=== PATIENT | male | born 1955 | race Caucasian/White ===

== ENCOUNTER 2018-07-21 10:47 | Emergency (ER) | payer OTHER ==
[2018-07-21] MEDS ORDERED: HYDROcodone/Acetaminophen 10/325 mg Tablet ONE (12:14)
[2018-07-21] MEDS ORDERED: Cyclobenzaprine 10 MG TAB ONE (12:14)
[2018-07-21] MEDS ORDERED: Morphine 4 MG/ML VIAL ONE (12:28)
== END 2018-07-21 13:16 | disposition home or self-care (01) ==
LOC: ERS 10:47
DX: M54.5 Low back pain (principal); F41.9 Anxiety disorder, unspecified; F32.9 Major depressive disorder, single episode, unspecified; F17.210 Nicotine dependence, cigarettes, uncomplicated; Z79.899 Other long term (current) drug therapy
CPT/HCPCS: 96372; J2270

== ENCOUNTER 2020-10-20 23:06 | Inpatient (IN) | payer OTHER ==
[2020-10-21 00:53] LABS: Mean Corpuscular HGB CONC 32.6 g/dL (32.0-36.0); Mean Corpuscular Hemoglobin 28.6 pg (27.0-31.0); Mean Corpuscular Volume 87.8 fL (78.0-98.0); Mean Platelet Volume 8.1 fL (7.4-10.4); Platelet Count 428 thou/uL (130-400); RBC Distribution Width 13.7 % (11.5-14.5); Red Blood Cell (RBC) Count 5.95 mill/uL (4.70-6.10); White Blood Cell (WBC) Count 24.9 thou/uL (4.8-10.8)
[2020-10-21 01:08] LABS: Band 16 % (5-11); Lymphocytes 19 % (21-51); MDiff Complete? YES; Monocytes 5 % (0-10); Neutrophil 60 % (42-75)
[2020-10-21 01:11] LABS: Acetaminophen Less than 6.0 mcg/mL (10.0-30.0); Alcohol Less than 10 mg/dL (Less than 10)
[2020-10-21 01:12] LABS: ALT (SGPT) 126 U/L (8-55); AST (SGOT) 576 U/L (5-34); Albumin 4.3 g/dL (3.4-4.8); Alkaline Phosphatase 107 U/L (40-110); Anion Gap 21 mmol/L (10-20); BUN (Urea Nitrogen) 23 mg/dL (8.4-25.7); Bilirubin, Total 0.5 mg/dL (0.2-1.2); Calc. Creatinine Clearance 0 mL/min (70-130); Calcium 9.5 mg/dL (7.8-10.44); Carbon Dioxide 22 mmol/L (23-31); Chloride 98 mmol/L (98-107); Globulin 4.6 g/dL (2.4-3.5); Glucose 162 mg/dL (80-115); Protein, Total 8.9 g/dL (5.8-8.1); Sodium 134 mmol/L (136-145)
[2020-10-21 01:21] LABS: Potassium 6.6 mmol/L (3.5-5.1)
[2020-10-21 01:31] LABS: Salicylate Less than 8.0 mg/dL (15.0-30.0)
[2020-10-21 01:51] LABS: CK (CPK) Greater than 40000 U/L (30-200)
[2020-10-21] MEDS ORDERED: Dextrose 50% Abboject 50 ML SYRINGE ONE (01:54)
[2020-10-21] MEDS ORDERED: Calcium Chloride 1 GM/10 ML Abboject SYRINGE ONE (01:54)
[2020-10-21] MEDS ORDERED: Vancomycin 1 GM/200 ML BAG ONE (03:01)
[2020-10-21] MEDS ORDERED: Cefepime 2 GM VIAL ONE (03:01)
[2020-10-21] MEDS ORDERED: Insulin Regular 300 UNITS/3 ML VIAL ONE (03:01)
[2020-10-21] MEDS ORDERED: Albuterol Sulfate 2.5 mg/3 ml Neb ONE (04:03)
[2020-10-21 04:13] LABS: Bacteria/HPF None Seen HPF (None Seen); Bilirubin Negative (Negative); Blood, Urine 3+ (Negative); Clarity Turbid (Clear); Glucose, Urine (Dipstick) 50 mg/dL (Negative); Ketone, Urine Negative (Negative); Leukocyte Negative Leu/uL (Negative); Nitrite Negative (Negative); Protein, Urine (Dipstick) 100 mg/dL (Neg-Trace); RBC/HPF 0-3 HPF (0-3); Specific Gravity, Urine 1.016 (1.002-1.036); Squamous Epithelial None Seen HPF (0-3); Urobilinogen Normal mg/dL (Less than 2); pH, Urine 5.5 (5.0-9.0)
[2020-10-21 04:21] LABS: Amphetamine Not Detected (NotDetected); Barbiturates Screen Not Detected (NotDetected); Benzodiazepine Screen Detected (NotDetected); Cocaine Metabolite Screen Detected (NotDetected); Methadone Not Detected (NotDetected); Methamphetamine Not Detected (NotDetected); Opiate Screen Not Detected (NotDetected); Oxycodone Screen Not Detected (NotDetected); Phencyclidine (PCP) Not Detected (NotDetected); THC/Cannabinoid Screen Not Detected (NotDetected); Tricyclic Screen Not Detected (NotDetected)
[2020-10-21] MEDS ORDERED: Ondansetron PF 4 MG/2 ML Vial IVP PRN (04:33)
[2020-10-21 05:13] LABS: CKMB 273.8 ng/mL (0-6.6)
[2020-10-21 05:17] LABS: INR-International Normal Ratio 1.2; PTT 28.9 sec (22.9-36.1); Prothrombin Time 14.8 sec (12.0-14.7)
[2020-10-21] MEDS: Sodium Bicarbonate 150 MEQ in Dextrose 5% in Water 1,000 ML IV SCH ×3 (05:24→21:49)
[2020-10-21 05:32] LABS: Lactic Acid 4.2 mmol/L (0.5-2.2)
[2020-10-21] MEDS ORDERED: Acetaminophen 325 MG TAB ONE (05:43)
[2020-10-21 05:54] LABS: CSF Source CSF; Clarity Clear (Clear); Tube # 4
[2020-10-21] MEDS: Acetaminophen 325 MG TAB PO PRN (05:57)
[2020-10-21 05:58] LABS: CSF Source CSF
[2020-10-21] MEDS: Sodium Chloride 0.9% 1,000 ML IV SCH ×2 (05:58→19:03)
[2020-10-21 05:59] LABS: Clarity Clear (Clear); Tube # 1
[2020-10-21 06:10] LABS: Cardiac Risk 5.2 (Less than 4.5)
[2020-10-21 06:15] LABS: CSF, Glucose 114 mg/dl (40-70); CSF, Protein 64 mg/dL (15-40)
[2020-10-21 06:16] LABS: Color Of CSF Supernatant COLORLESS (Colorless); Tube # 2; Unspun CSF Color COLORLESS (Colorless)
[2020-10-21 06:31] LABS: SARS-CoV-2 NAA Rapid Test Not Detected (NotDetected)
[2020-10-21 06:35] LABS: Hep C IgG Ab Reflex HepC Qnt (NonReactive); Hep C Index 13.26 S/CO (0-0.79)
[2020-10-21 07:16] LABS: ALT (SGPT) 120 U/L (8-55); AST (SGOT) 551 U/L (5-34); Albumin 3.2 g/dL (3.4-4.8); Alkaline Phosphatase 75 U/L (40-110); Anion Gap 11 mmol/L (10-20); BUN (Urea Nitrogen) 27 mg/dL (8.4-25.7); Bilirubin, Total 0.5 mg/dL (0.2-1.2); Calc. Creatinine Clearance 0 mL/min (70-130); Calcium 8.6 mg/dL (7.8-10.44); Carbon Dioxide 27 mmol/L (23-31); Chloride 102 mmol/L (98-107); Globulin 3.5 g/dL (2.4-3.5); Glucose 214 mg/dL (80-115); Potassium 4.6 mmol/L (3.5-5.1); Protein, Total 6.7 g/dL (5.8-8.1); Sodium 135 mmol/L (136-145)
[2020-10-21 07:42] LABS: CK (CPK) 35172 U/L (30-200)
[2020-10-21 08:30] LABS: Troponin I 0.342 ng/mL (< 0.028)
[2020-10-21] MEDS ORDERED: Cefepime 2 GM in Sodium Chloride 0.9% 100 ML IVPB SCH (09:00)
[2020-10-21] MEDS ORDERED: Enoxaparin Sodium 30 MG/0.3 ML SYRINGE SC SCH (09:00)
[2020-10-21] MEDS ORDERED: Morphine 4 MG/ML VIAL ONE (10:36)
[2020-10-21] MEDS ORDERED: Ondansetron PF 4 MG/2 ML Vial ONE (10:36)
[2020-10-21] MEDS ORDERED: PROPOFOL 200 MG/20 ML VIAL ONE (12:15)
[2020-10-21] MEDS ORDERED: Labetalol HCl 100 MG/20 ML VIAL ONE (13:45)
[2020-10-21] MEDS ORDERED: VANCOMYCIN 1.25 GM/250 ML BAG 1.25 GM in Premix Bag 1 BAG IVPB SCH (15:00)
[2020-10-21] MEDS ORDERED: Fentanyl 100 MCG/2 ML VIAL ONE (15:44)
[2020-10-21] MEDS: Lactated Ringer's 1,000 ML IV SCH ×2 (19:03→21:40)
[2020-10-21] MEDS: Cefepime 2 GM in Sodium Chloride 0.9% 100 ML IVPB SCH (19:03)
[2020-10-21] MEDS: Enoxaparin Sodium 40 MG/0.4 ML SYRINGE SC SCH (21:38)
[2020-10-21] MEDS: traMADol HCl 50 MG TAB PO PRN (21:38)
[2020-10-21] MEDS: Vancomycin 1 GM in Premix Bag 1 BAG IVPB SCH (23:02)
[2020-10-22] MEDS: Lactated Ringer's 1,000 ML IV SCH ×5 (04:26→23:26)
[2020-10-22] MEDS: Cefepime 2 GM in Sodium Chloride 0.9% 100 ML IVPB SCH ×2 (04:26→16:48)
[2020-10-22] MEDS: Morphine 4 MG/ML VIAL SLOW IVP PRN ×2 (04:26→17:33)
[2020-10-22] MEDS: Sodium Bicarbonate 150 MEQ in Dextrose 5% in Water 1,000 ML IV SCH (06:02)
[2020-10-22 06:57] LABS: ALT (SGPT) 104 U/L (8-55)
[2020-10-22 06:58] LABS: AST (SGOT) 527 U/L (5-34); Albumin 2.4 g/dL (3.4-4.8); Alkaline Phosphatase 51 U/L (40-110); Anion Gap 8 mmol/L (10-20); BUN (Urea Nitrogen) 34 mg/dL (8.4-25.7); Bilirubin, Total 0.4 mg/dL (0.2-1.2); Calc. Creatinine Clearance 37 mL/min (70-130); Calcium 6.9 mg/dL (7.8-10.44); Carbon Dioxide 31 mmol/L (23-31); Chloride 101 mmol/L (98-107); Globulin 2.9 g/dL (2.4-3.5); Glucose 126 mg/dL (80-115); Potassium 3.4 mmol/L (3.5-5.1); Protein, Total 5.3 g/dL (5.8-8.1); Sodium 137 mmol/L (136-145)
[2020-10-22 07:01] LABS: #Lymphocytes 2.4 thou/uL (1.20-3.40); #Neutrophils 11.1 thou/uL (1.40-6.50); %Basophils 0.2 % (0.0-1.0); %Eosinophils 0.1 % (0.0-10.0); %Lymphocytes 15.6 % (21.0-51.0); %Monocytes 12.9 % (0.0-10.0); %Neutrophils 71.1 % (42.0-75.0); Hemoglobin 11.1 g/dL (14.0-18.0); Mean Corpuscular HGB CONC 31.9 g/dL (32.0-36.0); Mean Corpuscular Hemoglobin 27.7 pg (27.0-31.0); Mean Corpuscular Volume 86.9 fL (78.0-98.0); Mean Platelet Volume 8.3 fL (7.4-10.4); Platelet Count 205 thou/uL (130-400); RBC Distribution Width 13.7 % (11.5-14.5); White Blood Cell (WBC) Count 15.6 thou/uL (4.8-10.8)
[2020-10-22] MEDS ORDERED: Lactated Ringer's 1,000 ML IV SCH (07:06)
[2020-10-22 07:12] LABS: CK (CPK) 24167 U/L (30-200)
[2020-10-22] MEDS: Polyethylene Glycol 3350 17 GM Packet PO SCH (08:54)
[2020-10-22 08:57] VITALS: BMI 24.4
[2020-10-22] MEDS ORDERED: Potassium Chloride 20 MEQ TAB PO SCH (09:30)
[2020-10-22] MEDS: Enoxaparin Sodium 40 MG/0.4 ML SYRINGE SC SCH (21:08)
[2020-10-22] MEDS: Vancomycin 1 GM in Premix Bag 1 BAG IVPB SCH (21:08)
[2020-10-22 23:45] LABS: Vancomycin, Trough 31.8 ug/mL
[2020-10-23] MEDS: Morphine 4 MG/ML VIAL SLOW IVP PRN ×5 (00:36→15:44)
[2020-10-23] MEDS: Acetaminophen 325 MG TAB PO PRN (00:58)
[2020-10-23] MEDS: Lactated Ringer's 1,000 ML IV SCH ×4 (04:00→20:49)
[2020-10-23] MEDS: Cefepime 2 GM in Sodium Chloride 0.9% 100 ML IVPB SCH ×2 (04:00→15:16)
[2020-10-23 05:47] LABS: #Eosinphils 0.1 thou/uL (0.0-0.7); #Lymphocytes 2.5 thou/uL (1.20-3.40); #Monocytes 1.4 thou/uL (0.11-0.59); %Basophils 0.1 % (0.0-1.0); %Eosinophils 0.6 % (0.0-10.0); %Lymphocytes 19.1 % (21.0-51.0); %Neutrophils 69.2 % (42.0-75.0); Hemoglobin 10.1 g/dL (14.0-18.0); Mean Corpuscular HGB CONC 32.5 g/dL (32.0-36.0); Mean Corpuscular Hemoglobin 28.2 pg (27.0-31.0); Mean Corpuscular Volume 86.6 fL (78.0-98.0); Mean Platelet Volume 8.5 fL (7.4-10.4); Platelet Count 189 thou/uL (130-400); RBC Distribution Width 13.7 % (11.5-14.5)
[2020-10-23 06:10] LABS: ALT (SGPT) 85 U/L (8-55); AST (SGOT) 473 U/L (5-34); Albumin 2.4 g/dL (3.4-4.8); Alkaline Phosphatase 52 U/L (40-110); Anion Gap 12 mmol/L (10-20); BUN (Urea Nitrogen) 33 mg/dL (8.4-25.7); Bilirubin, Total 0.6 mg/dL (0.2-1.2); Calc. Creatinine Clearance 52 mL/min (70-130); Calcium 7.2 mg/dL (7.8-10.44); Carbon Dioxide 29 mmol/L (23-31); Chloride 99 mmol/L (98-107); Globulin 2.9 g/dL (2.4-3.5); Glucose 115 mg/dL (80-115); Potassium 3.5 mmol/L (3.5-5.1); Protein, Total 5.3 g/dL (5.8-8.1); Sodium 136 mmol/L (136-145)
[2020-10-23 06:40] LABS: CK (CPK) 18555 U/L (30-200)
[2020-10-23] MEDS: Polyethylene Glycol 3350 17 GM Packet PO SCH (09:55)
[2020-10-23] MEDS ORDERED: Morphine 4 MG/ML VIAL SLOW IVP SCH (11:45)
[2020-10-23 12:15] LABS: HCV I.Units 11200000 IU/mL (.); HCV I.Units log10 7.049 (.); Hep C PCR-Quant See Final Results IU/mL (.)
[2020-10-23] MEDS ORDERED: Torsemide 20 MG TAB PO SCH (13:30)
[2020-10-23] MEDS ORDERED: Potassium Chloride 20 MEQ TAB PO SCH (13:30)
[2020-10-23] MEDS: Albumin 25% 25 GM/100 ML BOT IVPB SCH ×3 (15:16→20:48)
[2020-10-23] MEDS: Vancomycin 1 GM in Premix Bag 1 BAG IVPB SCH (20:48)
[2020-10-23] MEDS: Enoxaparin Sodium 40 MG/0.4 ML SYRINGE SC SCH (20:48)
[2020-10-23 21:26] LABS: Vancomycin, Trough 11.1 ug/mL
[2020-10-23] MEDS ORDERED: Vancomycin HCl 500 MG in Sodium Chloride 0.9% 100 ML IVPB SCH (22:00)
[2020-10-24] MEDS: Morphine 4 MG/ML VIAL SLOW IVP PRN ×4 (02:41→19:46)
[2020-10-24] MEDS: Cefepime 2 GM in Sodium Chloride 0.9% 100 ML IVPB SCH (02:41)
[2020-10-24] MEDS: Lactated Ringer's 1,000 ML IV SCH ×5 (05:21→18:25)
[2020-10-24] MEDS: traMADol HCl 50 MG TAB PO PRN ×2 (05:37→11:30)
[2020-10-24 05:51] LABS: #Lymphocytes 1.4 thou/uL (1.20-3.40); #Monocytes 1.5 thou/uL (0.11-0.59); #Neutrophils 7.8 thou/uL (1.40-6.50); %Basophils 0.2 % (0.0-1.0); %Eosinophils 0.2 % (0.0-10.0); %Lymphocytes 13.3 % (21.0-51.0); %Monocytes 13.6 % (0.0-10.0); %Neutrophils 72.7 % (42.0-75.0); Hemoglobin 9.8 g/dL (14.0-18.0); Mean Corpuscular HGB CONC 34.4 g/dL (32.0-36.0); Mean Corpuscular Hemoglobin 30.2 pg (27.0-31.0); Mean Corpuscular Volume 87.6 fL (78.0-98.0); Mean Platelet Volume 8.6 fL (7.4-10.4); Platelet Count 176 thou/uL (130-400); RBC Distribution Width 13.4 % (11.5-14.5); Red Blood Cell (RBC) Count 3.26 mill/uL (4.70-6.10); White Blood Cell (WBC) Count 10.7 thou/uL (4.8-10.8)
[2020-10-24 06:02] LABS: ALT (SGPT) 77 U/L (8-55); AST (SGOT) 435 U/L (5-34); Albumin 2.8 g/dL (3.4-4.8); Alkaline Phosphatase 50 U/L (40-110); Anion Gap 14 mmol/L (10-20); BUN (Urea Nitrogen) 35 mg/dL (8.4-25.7); Bilirubin, Total 0.8 mg/dL (0.2-1.2); Calc. Creatinine Clearance 50 mL/min (70-130); Calcium 7.5 mg/dL (7.8-10.44); Carbon Dioxide 31 mmol/L (23-31); Chloride 97 mmol/L (98-107); Globulin 2.3 g/dL (2.4-3.5); Glucose 101 mg/dL (80-115); Potassium 3.6 mmol/L (3.5-5.1); Protein, Total 5.1 g/dL (5.8-8.1); Sodium 138 mmol/L (136-145)
[2020-10-24 06:27] LABS: CK (CPK) 14910 U/L (30-200)
[2020-10-24] MEDS: Acetaminophen 325 MG TAB PO PRN (11:31)
[2020-10-24] MEDS: Polyethylene Glycol 3350 17 GM Packet PO SCH (11:35)
[2020-10-24] MEDS: Albumin 25% 25 GM/100 ML BOT IVPB SCH ×2 (14:04→20:22)
[2020-10-24] MEDS: Enoxaparin Sodium 40 MG/0.4 ML SYRINGE SC SCH (20:28)
[2020-10-24] MEDS ORDERED: Vancomycin 1.5 GRAM/300 ML BAG 1.5 GM in Premix Bag 1 BAG IVPB SCH (22:00)
[2020-10-25] MEDS: Morphine 4 MG/ML VIAL SLOW IVP PRN ×2 (00:22→04:14)
[2020-10-25] MEDS: Albumin 25% 25 GM/100 ML BOT IVPB SCH ×2 (04:14→13:56)
[2020-10-25] MEDS ORDERED: cefTRIAXone\\ROCEPHIN 1 GM in Sodium Chloride 0.9% 100 ML IVPB SCH ×2 (06:00→09:00)
[2020-10-25] MEDS: Lactated Ringer's 1,000 ML IV SCH ×2 (06:47→17:59)
[2020-10-25] MEDS ORDERED: EPINEPHrine 1 MG/ML AMP ONE (06:55)
[2020-10-25] MEDS ORDERED: Bupivacaine PF 0.5% 30 ML VIAL ONE (06:55)
[2020-10-25] MEDS ORDERED: Fentanyl 100 MCG/2 ML VIAL ONE ×2 (06:57→06:59)
[2020-10-25] MEDS ORDERED: Lidocaine 1% PF 5 ML VIAL ONE (07:29)
[2020-10-25] MEDS ORDERED: Ondansetron PF 4 MG/2 ML Vial ONE (07:29)
[2020-10-25] MEDS ORDERED: PROPOFOL 200 MG/20 ML VIAL ONE (07:29)
[2020-10-25 09:31] LABS: ALT (SGPT) 75 U/L (8-55); AST (SGOT) 371 U/L (5-34); Albumin 3.2 g/dL (3.4-4.8); Alkaline Phosphatase 56 U/L (40-110); Anion Gap 14 mmol/L (10-20); BUN (Urea Nitrogen) 29 mg/dL (8.4-25.7); Bilirubin, Total 0.6 mg/dL (0.2-1.2); Calc. Creatinine Clearance 58 mL/min (70-130); Calcium 8.3 mg/dL (7.8-10.44); Carbon Dioxide 28 mmol/L (23-31); Chloride 97 mmol/L (98-107); Globulin 2.7 g/dL (2.4-3.5); Glucose 112 mg/dL (80-115); Potassium 3.8 mmol/L (3.5-5.1); Protein, Total 5.9 g/dL (5.8-8.1); Sodium 135 mmol/L (136-145)
[2020-10-25 09:58] LABS: CK (CPK) 12577 U/L (30-200)
[2020-10-25] MEDS: Polyethylene Glycol 3350 17 GM Packet PO SCH (10:28)
[2020-10-25] MEDS: traMADol HCl 50 MG TAB PO PRN ×2 (10:34→18:11)
[2020-10-25 15:29] LABS: Anion Gap 11 mmol/L (10-20); BUN (Urea Nitrogen) 30 mg/dL (8.4-25.7); Calc. Creatinine Clearance 56 mL/min (70-130); Calcium 8.2 mg/dL (7.8-10.44); Carbon Dioxide 29 mmol/L (23-31); Chloride 98 mmol/L (98-107); Glucose 133 mg/dL (80-115); Potassium 4.1 mmol/L (3.5-5.1); Sodium 134 mmol/L (136-145)
[2020-10-25] MEDS: Enoxaparin Sodium 40 MG/0.4 ML SYRINGE SC SCH (21:02)
[2020-10-25] MEDS: hydrOXYzine 25 MG TAB PO PRN (23:25)
[2020-10-26] MEDS: cefTRIAXone\\ROCEPHIN 1 GM in Sodium Chloride 0.9% 100 ML IVPB SCH (05:35)
[2020-10-26] MEDS: traMADol HCl 50 MG TAB PO PRN ×2 (05:44)
[2020-10-26 05:58] LABS: Band 11 % (5-11); Hemoglobin 9.2 g/dL (14.0-18.0); Lymphocytes 12 % (21-51); MDiff Complete? YES; Mean Corpuscular HGB CONC 32.9 g/dL (32.0-36.0); Mean Corpuscular Hemoglobin 28.8 pg (27.0-31.0); Mean Corpuscular Volume 87.7 fL (78.0-98.0); Mean Platelet Volume 8.1 fL (7.4-10.4); Monocytes 18 % (0-10); Neutrophil 59 % (42-75); Platelet Count 254 thou/uL (130-400); Platelet Morphology Comment Appears Adequate; RBC Distribution Width 13.3 % (11.5-14.5); White Blood Cell (WBC) Count 10.9 thou/uL (4.8-10.8)
[2020-10-26 06:02] LABS: ALT (SGPT) 81 U/L (8-55); AST (SGOT) 352 U/L (5-34); Albumin 3.1 g/dL (3.4-4.8); Alkaline Phosphatase 63 U/L (40-110); Anion Gap 12 mmol/L (10-20); BUN (Urea Nitrogen) 25 mg/dL (8.4-25.7); Bilirubin, Total 0.6 mg/dL (0.2-1.2); Calc. Creatinine Clearance 58 mL/min (70-130); Calcium 8.2 mg/dL (7.8-10.44); Carbon Dioxide 30 mmol/L (23-31); Chloride 96 mmol/L (98-107); Globulin 2.7 g/dL (2.4-3.5); Glucose 104 mg/dL (80-115); Potassium 3.5 mmol/L (3.5-5.1); Protein, Total 5.8 g/dL (5.8-8.1); Sodium 134 mmol/L (136-145)
[2020-10-26 06:29] LABS: CK (CPK) 10703 U/L (30-200)
[2020-10-26 08:49] LABS: Creatinine, Urine 99.41 mg/dL (63-166)
[2020-10-26] MEDS: Polyethylene Glycol 3350 17 GM Packet PO SCH (12:59)
[2020-10-26] MEDS: hydrOXYzine 25 MG TAB PO PRN (12:59)
[2020-10-26] MEDS ORDERED: risperiDONE 1 MG TAB PO SCH (15:17)
[2020-10-26] MEDS: Pregabalin 50 MG CAP PO SCH (20:32)
[2020-10-26] MEDS: ALPRAZolam 0.5 MG TAB PO SCH (20:32)
[2020-10-26] MEDS: DULoxetine 60 MG CAP PO SCH (20:32)
[2020-10-26] MEDS: Enoxaparin Sodium 40 MG/0.4 ML SYRINGE SC SCH (20:41)
[2020-10-26] MEDS ORDERED: Non-Formulary Item 1 EACH (Pregabalin [Pregabalin] 200 MG Capsule) PO SCH (21:00)
[2020-10-27] MEDS: cefTRIAXone\\ROCEPHIN 1 GM in Sodium Chloride 0.9% 100 ML IVPB SCH (05:33)
[2020-10-27 06:11] LABS: Albumin 2.7 g/dL (3.4-4.8); Anion Gap 11 mmol/L (10-20); BUN (Urea Nitrogen) 21 mg/dL (8.4-25.7); Calc. Creatinine Clearance 68 mL/min (70-130); Carbon Dioxide 30 mmol/L (23-31); Chloride 100 mmol/L (98-107); Glucose 100 mg/dL (80-115); Phosphorus 2.9 mg/dL (2.3-4.7); Potassium 3.5 mmol/L (3.5-5.1); Sodium 137 mmol/L (136-145)
[2020-10-27] MEDS: traMADol HCl 50 MG TAB PO PRN ×2 (06:20→15:09)
[2020-10-27 06:37] LABS: CK (CPK) 9329 U/L (30-200)
[2020-10-27] MEDS: ALPRAZolam 0.5 MG TAB PO SCH ×3 (08:40→20:35)
[2020-10-27] MEDS: DULoxetine 60 MG CAP PO SCH ×2 (08:40→20:35)
[2020-10-27] MEDS: Acetaminophen 325 MG TAB PO PRN ×2 (08:40→15:08)
[2020-10-27] MEDS: Aripiprazole 10 MG TAB PO SCH (08:41)
[2020-10-27] MEDS: Pregabalin 50 MG CAP PO SCH ×3 (08:41→20:35)
[2020-10-27] MEDS: Polyethylene Glycol 3350 17 GM Packet PO SCH (08:42)
[2020-10-27] MEDS ORDERED: risperiDONE 1 MG TAB PO SCH (09:00)
[2020-10-27] MEDS: Enoxaparin Sodium 40 MG/0.4 ML SYRINGE SC SCH (20:35)
[2020-10-28] MEDS: traMADol HCl 50 MG TAB PO PRN ×4 (01:45→20:22)
[2020-10-28] MEDS: cefTRIAXone\\ROCEPHIN 1 GM in Sodium Chloride 0.9% 100 ML IVPB SCH (05:45)
[2020-10-28 05:57] LABS: Albumin 2.5 g/dL (3.4-4.8); Anion Gap 8 mmol/L (10-20); BUN (Urea Nitrogen) 18 mg/dL (8.4-25.7); BUN/Creatinine Ratio 16.07; Calc. Creatinine Clearance 72 mL/min (70-130); Calcium 7.9 mg/dL (7.8-10.44); Carbon Dioxide 30 mmol/L (23-31); Chloride 102 mmol/L (98-107); Glucose 112 mg/dL (80-115); Potassium 3.5 mmol/L (3.5-5.1); Sodium 136 mmol/L (136-145)
[2020-10-28 06:11] LABS: CK (CPK) 6133 U/L (30-200)
[2020-10-28] MEDS: Pregabalin 50 MG CAP PO SCH ×3 (09:57→20:23)
[2020-10-28] MEDS: ALPRAZolam 0.5 MG TAB PO SCH ×3 (09:57→20:23)
[2020-10-28] MEDS: Acetaminophen 325 MG TAB PO PRN ×3 (09:59→20:23)
[2020-10-28] MEDS: DULoxetine 60 MG CAP PO SCH ×2 (09:59→20:23)
[2020-10-28] MEDS: Aripiprazole 10 MG TAB PO SCH (09:59)
[2020-10-28] MEDS: Polyethylene Glycol 3350 17 GM Packet PO SCH (10:06)
[2020-10-28] MEDS: Enoxaparin Sodium 40 MG/0.4 ML SYRINGE SC SCH (20:23)
[2020-10-29] MEDS: traMADol HCl 50 MG TAB PO PRN ×3 (03:10→19:56)
[2020-10-29] MEDS: Acetaminophen 325 MG TAB PO PRN ×3 (03:10→19:57)
[2020-10-29] MEDS: cefTRIAXone\\ROCEPHIN 1 GM in Sodium Chloride 0.9% 100 ML IVPB SCH (05:54)
[2020-10-29] MEDS: Polyethylene Glycol 3350 17 GM Packet PO SCH (08:33)
[2020-10-29] MEDS: ALPRAZolam 0.5 MG TAB PO SCH ×3 (08:33→19:56)
[2020-10-29] MEDS: DULoxetine 60 MG CAP PO SCH ×2 (08:33→19:56)
[2020-10-29] MEDS: Aripiprazole 10 MG TAB PO SCH (08:33)
[2020-10-29] MEDS: Pregabalin 50 MG CAP PO SCH ×3 (08:33→19:56)
[2020-10-29 09:13] LABS: Hemoglobin 11.1 g/dL (14.0-18.0); Mean Corpuscular Hemoglobin 27.3 pg (27.0-31.0); Mean Corpuscular Volume 88.1 fL (78.0-98.0); Mean Platelet Volume 7.6 fL (7.4-10.4); Platelet Count 391 thou/uL (130-400); RBC Distribution Width 13.4 % (11.5-14.5); Red Blood Cell (RBC) Count 4.06 mill/uL (4.70-6.10); White Blood Cell (WBC) Count 8.6 thou/uL (4.8-10.8)
[2020-10-29 10:47] LABS: CK (CPK) 5251 U/L (30-200)
[2020-10-29 10:59] LABS: Albumin 2.8 g/dL (3.4-4.8); Anion Gap 9 mmol/L (10-20); BUN (Urea Nitrogen) 16 mg/dL (8.4-25.7); BUN/Creatinine Ratio 15.38; Calc. Creatinine Clearance 77 mL/min (70-130); Calcium 8.5 mg/dL (7.8-10.44); Carbon Dioxide 27 mmol/L (23-31); Chloride 104 mmol/L (98-107); Glucose 107 mg/dL (80-115); Phosphorus 3.8 mg/dL (2.3-4.7); Potassium 4.2 mmol/L (3.5-5.1); Sodium 136 mmol/L (136-145)
[2020-10-29] MEDS: Enoxaparin Sodium 40 MG/0.4 ML SYRINGE SC SCH (19:56)
[2020-10-30] MEDS: Acetaminophen 325 MG TAB PO PRN ×4 (03:35→20:33)
[2020-10-30] MEDS: traMADol HCl 50 MG TAB PO PRN ×3 (03:35→15:28)
[2020-10-30] MEDS: cefTRIAXone\\ROCEPHIN 1 GM in Sodium Chloride 0.9% 100 ML IVPB SCH (05:34)
[2020-10-30] MEDS: Aripiprazole 10 MG TAB PO SCH (09:12)
[2020-10-30] MEDS: DULoxetine 60 MG CAP PO SCH ×2 (09:12→20:33)
[2020-10-30] MEDS: Polyethylene Glycol 3350 17 GM Packet PO SCH (09:13)
[2020-10-30] MEDS: ALPRAZolam 0.5 MG TAB PO SCH ×3 (09:13→20:34)
[2020-10-30] MEDS: Pregabalin 50 MG CAP PO SCH ×3 (09:13→20:34)
[2020-10-30] MEDS: Morphine 2 MG/ML VIAL SLOW IVP PRN ×3 (10:43→22:33)
[2020-10-30] MEDS: Enoxaparin Sodium 40 MG/0.4 ML SYRINGE SC SCH (20:32)
[2020-10-30] MEDS: Ibuprofen 200 MG TAB PO SCH (20:33)
[2020-10-31] MEDS: cefTRIAXone\\ROCEPHIN 1 GM in Sodium Chloride 0.9% 100 ML IVPB SCH (06:30)
[2020-10-31] MEDS: Morphine 2 MG/ML VIAL SLOW IVP PRN ×3 (06:30→16:20)
[2020-10-31] MEDS: DULoxetine 60 MG CAP PO SCH (08:41)
[2020-10-31] MEDS: Ibuprofen 200 MG TAB PO SCH (08:42)
[2020-10-31] MEDS: Pregabalin 50 MG CAP PO SCH ×2 (08:42→15:12)
[2020-10-31] MEDS: Aripiprazole 10 MG TAB PO SCH (08:42)
[2020-10-31] MEDS: traMADol HCl 50 MG TAB PO PRN ×2 (08:43→15:13)
[2020-10-31] MEDS: ALPRAZolam 0.5 MG TAB PO SCH ×2 (08:44→15:12)
[2020-10-31] MEDS: Polyethylene Glycol 3350 17 GM Packet PO SCH (08:44)
[2020-10-31] MEDS: Acetaminophen 325 MG TAB PO PRN (13:35)
[2020-10-31 17:29] VITALS: BP 101/62; TEMP 98
== END 2020-10-31 17:30 | DRG 853 ==
LOC: ERS 23:06 → ERHOLD 10-21 01:56 → SURG A 10-21 11:33 → SJJU 10-21 16:48
PROVIDERS: ADMIT Student in an Organized Health Care Education/Training Program; ATTEND Internal Medicine
PROC: 0KNT0ZZ Release Left Lower Leg Muscle, Open Approach (ICD-10-PCS; principal; 2020-10-21)
PROC: 0KNT0ZZ Release Left Lower Leg Muscle, Open Approach (ICD-10-PCS; 2020-10-21)
PROC: 0KNT0ZZ Release Left Lower Leg Muscle, Open Approach (ICD-10-PCS; 2020-10-21)
PROC: 0KNT0ZZ Release Left Lower Leg Muscle, Open Approach (ICD-10-PCS; 2020-10-21)
PROC: 0KNR0ZZ Release Left Upper Leg Muscle, Open Approach (ICD-10-PCS; 2020-10-21)
PROC: 0KNR0ZZ Release Left Upper Leg Muscle, Open Approach (ICD-10-PCS; 2020-10-21)
PROC: 009U3ZX Drainage of Spinal Canal, Percutaneous Approach, Diagnostic (ICD-10-PCS; 2020-10-21)
PROC: 06HY33Z Insertion of Infusion Device into Lower Vein, Percutaneous Approach (ICD-10-PCS; 2020-10-21)
PROC: 0KNT0ZZ Release Left Lower Leg Muscle, Open Approach (ICD-10-PCS; 2020-10-25)
PROC: 0HQJXZZ Repair Left Upper Leg Skin, External Approach (ICD-10-PCS; 2020-10-25)
DX: A41.9 Sepsis, unspecified organism (principal); Z20.822 Contact with and (suspected) exposure to COVID-19; G92 Toxic encephalopathy; A48.0 Gas gangrene; K72.00 Acute and subacute hepatic failure without coma; T79.A22A Traumatic compartment syndrome of left lower extremity, initial encounter; N17.9 Acute kidney failure, unspecified; E87.2 Acidosis; M62.82 Rhabdomyolysis; D62 Acute posthemorrhagic anemia; R65.20 Severe sepsis without septic shock; F31.9 Bipolar disorder, unspecified; E87.5 Hyperkalemia; F41.9 Anxiety disorder, unspecified; F17.210 Nicotine dependence, cigarettes, uncomplicated; G89.29 Other chronic pain; M54.9 Dorsalgia, unspecified; F14.10 Cocaine abuse, uncomplicated; R79.89 Other specified abnormal findings of blood chemistry; E88.09 Other disorders of plasma-protein metabolism, not elsewhere classified; E86.9 Volume depletion, unspecified; E87.6 Hypokalemia; Z88.6 Allergy status to analgesic agent; Z88.8 Allergy status to other drugs, medicaments and biological substances; Z79.899 Other long term (current) drug therapy
CPT/HCPCS: 36415; 36416; 51701; 62270; 70450; 71045; 74176; 80048; 80053; 80061; 80069; 80202; 80306; 80307; 81003; 81015; 82550; 82553; 82570; 82945; 83605; 83735; 84156; 84157; 84300; 84484; 85025; 85027; 85610; 85730; 86803; 87040; 87070; 87086; 87205; 87522; 89051; 93005; 93923; 96365; 96367; 96375; J0171; J0692; J0696; J1650; J1815; J2270; J2405; J2704; J3010; J3370; J3490; J7050; J7070; J7120; J7611; P9047; S0020; U0002

== ENCOUNTER 2020-11-15 11:54 | Inpatient (IN) | payer OTHER ==
[~2020-11-15 11:54] MED LIST: Heparin 1,000 UNITS/ML VIAL ONE
[2020-11-15] MEDS ORDERED: Heparin 5,000 UNITS/ML VIAL ONE (12:52)
[2020-11-15] MEDS ORDERED: Fentanyl 100 MCG/2 ML VIAL ONE ×3 (13:32→19:53)
[2020-11-15] MEDS ORDERED: Morphine 2 MG/ML VIAL ONE (13:43)
[2020-11-15] MEDS ORDERED: Bupivacaine 0.25% HCL 30 ML VIAL ONE (13:57)
[2020-11-15] MEDS ORDERED: Sodium Chloride 0.9% 20 ML ONE (13:57)
[2020-11-15] MEDS ORDERED: EPINEPHrine 1 MG/ML AMP ONE (13:57)
[2020-11-15] MEDS ORDERED: Morphine 4 MG/ML VIAL ONE (15:12)
[2020-11-15] MEDS ORDERED: Midazolam HCl 2 mg/2 ml Vial ONE ×2 (15:14→17:31)
[2020-11-15] MEDS ORDERED: ePHEDrine 50 MG/ML VIAL ONE (15:48)
[2020-11-15] MEDS ORDERED: PHENYLEPHRINE-NS 100 MCG/ML 10 ML SYRINGE ONE (15:48)
[2020-11-15] MEDS ORDERED: Dexamethasone 20 MG/5 ML VIAL ONE (15:48)
[2020-11-15] MEDS ORDERED: Lidocaine 1% PF 5 ML VIAL ONE (15:48)
[2020-11-15] MEDS ORDERED: PROPOFOL 200 MG/20 ML VIAL ONE (15:48)
[2020-11-15] MEDS ORDERED: diphenhydrAMINE 50 MG/ML VIAL ONE (15:48)
[2020-11-15] MEDS ORDERED: Ondansetron PF 4 MG/2 ML Vial ONE (15:48)
[2020-11-15] MEDS ORDERED: Albumin 25% 0 ML ONE (16:33)
[2020-11-15] MEDS ORDERED: Albumin 5% 500 ML ONE (16:34)
[2020-11-15 17:46] LABS: #Eosinphils 0.2 thou/uL (0.0-0.7); #Lymphocytes 3.5 thou/uL (1.20-3.40); #Monocytes 0.7 thou/uL (0.11-0.59); %Eosinophils 2.5 % (0.0-10.0); %Lymphocytes 41.3 % (21.0-51.0); %Monocytes 8.4 % (0.0-10.0); %Neutrophils 47.8 % (42.0-75.0); Hemoglobin 9.5 g/dL (14.0-18.0); Mean Corpuscular Volume 87.4 fL (78.0-98.0); Mean Platelet Volume 7.5 fL (7.4-10.4); Platelet Count 365 thou/uL (130-400); RBC Distribution Width 12.5 % (11.5-14.5); Red Blood Cell (RBC) Count 3.41 mill/uL (4.70-6.10); White Blood Cell (WBC) Count 8.4 thou/uL (4.8-10.8)
[2020-11-15] MEDS ORDERED: Fentanyl 250 MCG/5 ML VIAL ONE (18:54)
[2020-11-15] MEDS ORDERED: Ondansetron HCl/PF 4 MG/2 ML Vial IVP PRN (19:36)
[2020-11-15] MEDS ORDERED: Promethazine HCl 25 MG/ML VIAL IM PRN (19:36)
[2020-11-15] MEDS ORDERED: Morphine Sulfate 2 MG/ML SYRINGE SLOW IVP PRN (19:36)
[2020-11-15 21:04] VITALS: BMI 20.6
[2020-11-16] MEDS: HYDROcodone/Acetaminophen 5/325 mg Tablet PO PRN ×4 (00:14→18:43)
[2020-11-16 01:06] LABS: SARS-CoV-2 NAA Rapid Test Not Detected (NotDetected)
[2020-11-16 05:14] LABS: #Lymphocytes 1.6 thou/uL (1.20-3.40); #Monocytes 0.7 thou/uL (0.11-0.59); #Neutrophils 8.9 thou/uL (1.40-6.50); %Basophils 0.1 % (0.0-1.0); %Eosinophils 0.1 % (0.0-10.0); %Monocytes 6.2 % (0.0-10.0); %Neutrophils 79.7 % (42.0-75.0); Mean Corpuscular HGB CONC 32.7 g/dL (32.0-36.0); Mean Corpuscular Hemoglobin 28.3 pg (27.0-31.0); Mean Corpuscular Volume 86.5 fL (78.0-98.0); Mean Platelet Volume 6.9 fL (7.4-10.4); Platelet Count 333 thou/uL (130-400); RBC Distribution Width 12.6 % (11.5-14.5); Red Blood Cell (RBC) Count 2.46 mill/uL (4.70-6.10); White Blood Cell (WBC) Count 11.1 thou/uL (4.8-10.8)
[2020-11-16 05:24] LABS: ALT (SGPT) 27 U/L (8-55); AST (SGOT) 29 U/L (5-34); Albumin 3.4 g/dL (3.4-4.8); Alkaline Phosphatase 78 U/L (40-110); Anion Gap 15 mmol/L (10-20); BUN (Urea Nitrogen) 26 mg/dL (8.4-25.7); Bilirubin, Total 0.2 mg/dL (0.2-1.2); Calc. Creatinine Clearance 87 mL/min (70-130); Calcium 8.8 mg/dL (7.8-10.44); Carbon Dioxide 22 mmol/L (23-31); Chloride 106 mmol/L (98-107); Globulin 3.4 g/dL (2.4-3.5); Glucose 156 mg/dL (80-115); Potassium 4.7 mmol/L (3.5-5.1); Protein, Total 6.8 g/dL (5.8-8.1); Sodium 138 mmol/L (136-145)
[2020-11-16] MEDS: Ibuprofen 200 MG TAB PO SCH ×2 (07:44→19:47)
[2020-11-16] MEDS: Aripiprazole 10 MG TAB PO SCH (07:44)
[2020-11-16] MEDS: Pregabalin 50 MG CAP PO SCH (07:45)
[2020-11-16] MEDS: ALPRAZolam 0.5 MG TAB PO SCH ×3 (07:45→19:48)
[2020-11-16] MEDS: DULoxetine 60 MG CAP PO SCH ×2 (07:46→19:48)
[2020-11-16] MEDS ORDERED: Morphine 4 MG/ML VIAL ONE (11:38)
[2020-11-16] MEDS ORDERED: Lidocaine 4% Topical Sol 50 ML BOT TOP PRN (11:44)
[2020-11-16] MEDS ORDERED: Morphine 4 MG/ML VIAL IV SCH ×2 (11:45→12:00)
[2020-11-16] MEDS: Nicotine 21 MG PATCH TOP SCH (16:03)
[2020-11-17] MEDS: HYDROcodone/Acetaminophen 5/325 mg Tablet PO PRN ×4 (00:52→18:33)
[2020-11-17 06:12] LABS: Hemoglobin 7.5 g/dL (14.0-18.0)
[2020-11-17] MEDS: Pregabalin 50 MG CAP PO SCH (09:34)
[2020-11-17] MEDS: Ibuprofen 200 MG TAB PO SCH ×2 (09:34→20:28)
[2020-11-17] MEDS: DULoxetine 60 MG CAP PO SCH ×2 (09:35→20:28)
[2020-11-17] MEDS: ALPRAZolam 0.5 MG TAB PO SCH ×3 (09:35→20:28)
[2020-11-17] MEDS: Aripiprazole 10 MG TAB PO SCH (09:35)
[2020-11-17] MEDS: Nicotine 21 MG PATCH TOP SCH (16:37)
[2020-11-18] MEDS: HYDROcodone/Acetaminophen 5/325 mg Tablet PO PRN ×4 (00:12→20:53)
[2020-11-18] MEDS: Aripiprazole 10 MG TAB PO SCH (08:56)
[2020-11-18] MEDS: ALPRAZolam 0.5 MG TAB PO SCH ×3 (08:57→20:53)
[2020-11-18] MEDS: Ibuprofen 200 MG TAB PO SCH ×2 (08:58→20:52)
[2020-11-18] MEDS: Pregabalin 50 MG CAP PO SCH (08:59)
[2020-11-18] MEDS: DULoxetine 60 MG CAP PO SCH ×2 (08:59→20:53)
[2020-11-18] MEDS: Enoxaparin Sodium 40 MG/0.4 ML SYRINGE SC SCH (09:00)
[2020-11-18] MEDS: Nicotine 21 MG PATCH TOP SCH (16:31)
[2020-11-18] MEDS ORDERED: ePHEDrine 50 MG/ML VIAL ONE (18:22)
[2020-11-18] MEDS ORDERED: PROPOFOL 200 MG/20 ML VIAL ONE (18:22)
[2020-11-18] MEDS ORDERED: PHENYLEPHRINE-NS 100 MCG/ML 10 ML SYRINGE ONE (18:22)
[2020-11-18] MEDS ORDERED: Fentanyl 100 MCG/2 ML VIAL ONE ×2 (18:22→19:44)
[2020-11-18] MEDS ORDERED: Ondansetron PF 4 MG/2 ML Vial ONE (18:22)
[2020-11-18] MEDS ORDERED: Lidocaine 1% PF 5 ML VIAL ONE (18:22)
[2020-11-18] MEDS ORDERED: Ondansetron HCl/PF 4 MG/2 ML Vial IVP PRN (19:46)
[2020-11-18] MEDS ORDERED: Promethazine HCl 25 MG/ML VIAL IM PRN (19:46)
[2020-11-18] MEDS ORDERED: Promethazine HCl 25 MG/ML VIAL IVPB PRN (19:46)
[2020-11-19] MEDS: HYDROcodone/Acetaminophen 5/325 mg Tablet PO PRN ×4 (01:58→20:53)
[2020-11-19] MEDS: Nicotine 21 MG PATCH TOP SCH (02:01)
[2020-11-19 06:13] LABS: #Eosinphils 0.5 thou/uL (0.0-0.7); #Monocytes 1.8 thou/uL (0.11-0.59); #Neutrophils 11.7 thou/uL (1.40-6.50); %Basophils 0.1 % (0.0-1.0); %Lymphocytes 12.5 % (21.0-51.0); %Monocytes 11.4 % (0.0-10.0); Hemoglobin 8.3 g/dL (14.0-18.0); Mean Corpuscular HGB CONC 31.6 g/dL (32.0-36.0); Mean Corpuscular Hemoglobin 27.9 pg (27.0-31.0); Mean Corpuscular Volume 88.4 fL (78.0-98.0); Mean Platelet Volume 7.3 fL (7.4-10.4); Platelet Count 366 thou/uL (130-400); RBC Distribution Width 13.3 % (11.5-14.5); Red Blood Cell (RBC) Count 2.96 mill/uL (4.70-6.10); White Blood Cell (WBC) Count 16.1 thou/uL (4.8-10.8)
[2020-11-19 06:29] LABS: ALT (SGPT) 21 U/L (8-55); AST (SGOT) 26 U/L (5-34); Albumin 3.1 g/dL (3.4-4.8); Alkaline Phosphatase 81 U/L (40-110); Anion Gap 11 mmol/L (10-20); BUN (Urea Nitrogen) 32 mg/dL (8.4-25.7); Bilirubin, Total 0.4 mg/dL (0.2-1.2); Calc. Creatinine Clearance 92 mL/min (70-130); Carbon Dioxide 28 mmol/L (23-31); Chloride 101 mmol/L (98-107); Globulin 3.4 g/dL (2.4-3.5); Glucose 133 mg/dL (80-115); Potassium 4.4 mmol/L (3.5-5.1); Protein, Total 6.5 g/dL (5.8-8.1); Sodium 136 mmol/L (136-145)
[2020-11-19] MEDS: Aripiprazole 10 MG TAB PO SCH (08:42)
[2020-11-19] MEDS: DULoxetine 60 MG CAP PO SCH ×2 (08:42→20:52)
[2020-11-19] MEDS: ALPRAZolam 0.5 MG TAB PO SCH ×3 (08:43→20:52)
[2020-11-19] MEDS: Pregabalin 50 MG CAP PO SCH ×3 (08:43→20:52)
[2020-11-19] MEDS: Enoxaparin Sodium 40 MG/0.4 ML SYRINGE SC SCH (08:43)
[2020-11-19] MEDS: Ibuprofen 200 MG TAB PO SCH ×2 (08:43→20:53)
[2020-11-19] MEDS: Piperacillin/Tazobactam 3.375 GM in Sodium Chloride 0.9% 100 ML IVPB SCH ×4 (10:01→23:38)
[2020-11-19] MEDS ORDERED: Piperacillin/Tazobactam 3.375 GM in Sodium Chloride 0.9% 100 ML IVPB SCH (13:00)
[2020-11-19] MEDS: Atorvastatin Calcium 20 MG TAB PO SCH (20:52)
[2020-11-20] MEDS: HYDROcodone/Acetaminophen 5/325 mg Tablet PO PRN ×5 (03:03→23:04)
[2020-11-20 07:07] LABS: Hemoglobin 7.9 g/dL (14.0-18.0); Mean Corpuscular HGB CONC 32.5 g/dL (32.0-36.0); Mean Corpuscular Hemoglobin 28.4 pg (27.0-31.0); Mean Corpuscular Volume 87.6 fL (78.0-98.0); Mean Platelet Volume 7.4 fL (7.4-10.4); Platelet Count 361 thou/uL (130-400); RBC Distribution Width 13.1 % (11.5-14.5); Red Blood Cell (RBC) Count 2.78 mill/uL (4.70-6.10); White Blood Cell (WBC) Count 14.2 thou/uL (4.8-10.8)
[2020-11-20] MEDS: ALPRAZolam 0.5 MG TAB PO SCH ×3 (09:23→19:59)
[2020-11-20] MEDS: DULoxetine 60 MG CAP PO SCH ×2 (09:24→19:59)
[2020-11-20] MEDS: Enoxaparin Sodium 40 MG/0.4 ML SYRINGE SC SCH (09:25)
[2020-11-20] MEDS: Nicotine 21 MG PATCH TOP SCH (09:25)
[2020-11-20 09:27] LABS: Band 16 % (5-11); Eosinophils 9 % (0-10); Lymphocytes 19 % (21-51); MDiff Complete? YES; Monocytes 15 % (0-10); Neutrophil 41 % (42-75); Platelet Morphology Comment Appears Adequate; Polychromasia SLIGHT = 2-3 cells (100X) (0-2/hpf)
[2020-11-20] MEDS: Piperacillin/Tazobactam 3.375 GM in Sodium Chloride 0.9% 100 ML IVPB SCH (09:32)
[2020-11-20] MEDS: Pregabalin 50 MG CAP PO SCH ×3 (09:33→20:00)
[2020-11-20] MEDS: Vancomycin 1 GM in Premix Bag 1 BAG IVPB SCH ×2 (09:34→23:05)
[2020-11-20] MEDS: Aripiprazole 10 MG TAB PO SCH (09:53)
[2020-11-20] MEDS: Ibuprofen 200 MG TAB PO SCH ×2 (11:26→20:00)
[2020-11-20] MEDS ORDERED: MEROPENEM 1 GM/50 ML 1 GM in Premix Bag 1 BAG IVPB SCH (12:00)
[2020-11-20] MEDS: Atorvastatin Calcium 20 MG TAB PO SCH (19:59)
[2020-11-20] MEDS: MEROPENEM 1 GM/50 ML 1 GM in Premix Bag 1 BAG IVPB SCH (19:59)
[2020-11-21] MEDS: MEROPENEM 1 GM/50 ML 1 GM in Premix Bag 1 BAG IVPB SCH ×3 (03:31→19:58)
[2020-11-21] MEDS: HYDROcodone/Acetaminophen 5/325 mg Tablet PO PRN ×3 (05:15→18:38)
[2020-11-21 08:28] LABS: ALT (SGPT) 21 U/L (8-55); AST (SGOT) 31 U/L (5-34); Alkaline Phosphatase 103 U/L (40-110); Anion Gap 13 mmol/L (10-20); BUN (Urea Nitrogen) 27 mg/dL (8.4-25.7); Bilirubin, Total 0.2 mg/dL (0.2-1.2); Calc. Creatinine Clearance 98 mL/min (70-130); Calcium 9.4 mg/dL (7.8-10.44); Carbon Dioxide 26 mmol/L (23-31); Chloride 101 mmol/L (98-107); Globulin 4.1 g/dL (2.4-3.5); Glucose 111 mg/dL (80-115); Potassium 4.1 mmol/L (3.5-5.1); Protein, Total 7.1 g/dL (5.8-8.1); Sodium 136 mmol/L (136-145)
[2020-11-21] MEDS: Enoxaparin Sodium 40 MG/0.4 ML SYRINGE SC SCH (09:12)
[2020-11-21] MEDS: Pregabalin 50 MG CAP PO SCH ×3 (09:13→19:57)
[2020-11-21] MEDS: Ibuprofen 200 MG TAB PO SCH ×2 (09:13→19:56)
[2020-11-21] MEDS: DULoxetine 60 MG CAP PO SCH ×2 (09:13→19:56)
[2020-11-21] MEDS: ALPRAZolam 0.5 MG TAB PO SCH ×3 (09:13→19:56)
[2020-11-21] MEDS: Vancomycin 1 GM in Premix Bag 1 BAG IVPB SCH (09:14)
[2020-11-21] MEDS: Aripiprazole 10 MG TAB PO SCH (09:37)
[2020-11-21] MEDS: Nicotine 21 MG PATCH TOP SCH (13:01)
[2020-11-21] MEDS: Atorvastatin Calcium 20 MG TAB PO SCH (19:57)
[2020-11-21 20:19] LABS: Vancomycin, Trough 12.2 ug/mL
[2020-11-22] MEDS: Vancomycin 1 GM in Premix Bag 1 BAG IVPB SCH ×2 (00:13→08:30)
[2020-11-22] MEDS: HYDROcodone/Acetaminophen 5/325 mg Tablet PO PRN ×4 (00:13→21:58)
[2020-11-22] MEDS: MEROPENEM 1 GM/50 ML 1 GM in Premix Bag 1 BAG IVPB SCH ×3 (03:54→21:59)
[2020-11-22] MEDS: DULoxetine 60 MG CAP PO SCH ×2 (08:27→21:56)
[2020-11-22] MEDS: Ibuprofen 200 MG TAB PO SCH ×2 (08:27→21:56)
[2020-11-22] MEDS: Nicotine 21 MG PATCH TOP SCH (08:29)
[2020-11-22] MEDS: Pregabalin 50 MG CAP PO SCH ×3 (08:29→21:58)
[2020-11-22] MEDS ORDERED: Fentanyl 100 MCG/2 ML VIAL ONE ×2 (12:34→15:32)
[2020-11-22] MEDS ORDERED: HYDROmorphone 0.5 MG/0.5 ML SYRINGE ONE (12:34)
[2020-11-22] MEDS ORDERED: Phenylephrine 10 MG/ML VIAL ONE (12:35)
[2020-11-22] MEDS ORDERED: PROPOFOL 200 MG/20 ML VIAL ONE (12:49)
[2020-11-22] MEDS ORDERED: Ondansetron PF 4 MG/2 ML Vial ONE (12:49)
[2020-11-22] MEDS ORDERED: Lidocaine 1% PF 5 ML VIAL ONE (12:49)
[2020-11-22] MEDS ORDERED: Promethazine HCl 25 MG/ML VIAL IM PRN (15:34)
[2020-11-22] MEDS ORDERED: Ondansetron HCl/PF 4 MG/2 ML Vial IVP PRN (15:34)
[2020-11-22] MEDS ORDERED: Promethazine HCl 25 MG/ML VIAL IVPB PRN (15:34)
[2020-11-22] MEDS ORDERED: HYDROmorphone 2 MG/ML VIAL SLOW IVP PRN (15:34)
[2020-11-22] MEDS: ALPRAZolam 0.5 MG TAB PO SCH ×3 (15:57→21:57)
[2020-11-22] MEDS: Aripiprazole 10 MG TAB PO SCH (15:58)
[2020-11-22] MEDS: Enoxaparin Sodium 40 MG/0.4 ML SYRINGE SC SCH (15:58)
[2020-11-22] MEDS: Atorvastatin Calcium 20 MG TAB PO SCH (21:56)
[2020-11-22 22:49] LABS: #Eosinphils 0.7 thou/uL (0.0-0.7); #Lymphocytes 2.3 thou/uL (1.20-3.40); #Monocytes 1.5 thou/uL (0.11-0.59); %Eosinophils 5.9 % (0.0-10.0); %Lymphocytes 18.1 % (21.0-51.0); %Monocytes 11.8 % (0.0-10.0); %Neutrophils 64.1 % (42.0-75.0); Hemoglobin 8.1 g/dL (14.0-18.0); Mean Corpuscular HGB CONC 33.1 g/dL (32.0-36.0); Mean Corpuscular Hemoglobin 28.3 pg (27.0-31.0); Mean Corpuscular Volume 85.4 fL (78.0-98.0); Platelet Count 470 thou/uL (130-400); RBC Distribution Width 13.1 % (11.5-14.5); Red Blood Cell (RBC) Count 2.86 mill/uL (4.70-6.10); White Blood Cell (WBC) Count 12.4 thou/uL (4.8-10.8)
[2020-11-22 22:50] LABS: Anion Gap 12 mmol/L (10-20); BUN (Urea Nitrogen) 31 mg/dL (8.4-25.7); Calc. Creatinine Clearance 81 mL/min (70-130); Calcium 9.1 mg/dL (7.8-10.44); Carbon Dioxide 27 mmol/L (23-31); Chloride 100 mmol/L (98-107); Glucose 120 mg/dL (80-115); Potassium 4.1 mmol/L (3.5-5.1); Sodium 135 mmol/L (136-145)
[2020-11-23] MEDS: Vancomycin 1 GM in Premix Bag 1 BAG IVPB SCH ×2 (01:58→12:18)
[2020-11-23] MEDS: HYDROcodone/Acetaminophen 5/325 mg Tablet PO PRN ×4 (03:41→21:03)
[2020-11-23] MEDS: MEROPENEM 1 GM/50 ML 1 GM in Premix Bag 1 BAG IVPB SCH ×3 (03:41→21:02)
[2020-11-23] MEDS: Pregabalin 50 MG CAP PO SCH ×3 (10:07→21:08)
[2020-11-23] MEDS: Nicotine 21 MG PATCH TOP SCH (10:07)
[2020-11-23] MEDS: Aripiprazole 10 MG TAB PO SCH (10:08)
[2020-11-23] MEDS: ALPRAZolam 0.5 MG TAB PO SCH ×3 (10:08→21:03)
[2020-11-23] MEDS: DULoxetine 60 MG CAP PO SCH ×2 (10:08→21:04)
[2020-11-23] MEDS: Ibuprofen 200 MG TAB PO SCH ×2 (10:09→21:03)
[2020-11-23] MEDS: Enoxaparin Sodium 40 MG/0.4 ML SYRINGE SC SCH (10:10)
[2020-11-23 11:35] LABS: Vancomycin, Trough 15.3 ug/mL
[2020-11-23 18:42] LABS: SARS-CoV-2 PCR by NAA Not Detected (NotDetected)
[2020-11-23] MEDS: Atorvastatin Calcium 20 MG TAB PO SCH (21:04)
[2020-11-24] MEDS: Vancomycin 1 GM in Premix Bag 1 BAG IVPB SCH ×2 (00:30→08:39)
[2020-11-24] MEDS: HYDROcodone/Acetaminophen 5/325 mg Tablet PO PRN ×4 (04:17→21:22)
[2020-11-24] MEDS: MEROPENEM 1 GM/50 ML 1 GM in Premix Bag 1 BAG IVPB SCH ×3 (04:17→20:46)
[2020-11-24 06:23] LABS: Band 3 % (5-11); Eosinophils 5 % (0-10); Hemoglobin 6.6 g/dL (14.0-18.0); Lymphocytes 14 % (21-51); MDiff Complete? YES; Mean Corpuscular Hemoglobin 28.7 pg (27.0-31.0); Mean Platelet Volume 6.8 fL (7.4-10.4); Monocytes 9 % (0-10); Neutrophil 69 % (42-75); Platelet Count 376 thou/uL (130-400); Platelet Morphology Comment Appears Adequate; RBC Distribution Width 13.2 % (11.5-14.5); White Blood Cell (WBC) Count 9.5 thou/uL (4.8-10.8)
[2020-11-24] MEDS: Nicotine 21 MG PATCH TOP SCH (08:39)
[2020-11-24] MEDS: Aripiprazole 10 MG TAB PO SCH (08:40)
[2020-11-24] MEDS: Enoxaparin Sodium 40 MG/0.4 ML SYRINGE SC SCH (08:40)
[2020-11-24] MEDS: DULoxetine 60 MG CAP PO SCH ×2 (08:41→20:38)
[2020-11-24] MEDS: Pregabalin 50 MG CAP PO SCH ×3 (08:41→20:39)
[2020-11-24] MEDS: Ibuprofen 200 MG TAB PO SCH ×2 (08:53→20:37)
[2020-11-24] MEDS: ALPRAZolam 0.5 MG TAB PO SCH ×3 (09:59→20:38)
[2020-11-24 12:42] LABS: Hemoglobin 6.3 g/dL (14.0-18.0)
[2020-11-24 20:38] LABS: Reticulocyte Count 1.5 % (0.5-1.5)
[2020-11-24] MEDS: Atorvastatin Calcium 20 MG TAB PO SCH (20:38)
[2020-11-24 20:42] LABS: Vancomycin, Trough 18.6 ug/mL
[2020-11-24 20:44] LABS: Hemoglobin 6.5 g/dL (14.0-18.0)
[2020-11-24 20:48] LABS: Iron 23 ug/dL (65-175); Iron Binding Capacity, Total 239 mcg/dL (261-462)
[2020-11-24 21:07] LABS: Ferritin 360.63 ng/mL (22-322); Thyroid Stimulating Hormone 5.365 uIU/mL (0.35-4.94)
[2020-11-25] MEDS: Vancomycin 1 GM in Premix Bag 1 BAG IVPB SCH ×3 (00:53→15:54)
[2020-11-25] MEDS: MEROPENEM 1 GM/50 ML 1 GM in Premix Bag 1 BAG IVPB SCH ×3 (03:02→20:30)
[2020-11-25] MEDS: HYDROcodone/Acetaminophen 5/325 mg Tablet PO PRN ×4 (03:02→20:38)
[2020-11-25 05:09] LABS: #Eosinphils 0.7 thou/uL (0.0-0.7); #Lymphocytes 2.2 thou/uL (1.20-3.40); #Monocytes 1.1 thou/uL (0.11-0.59); #Neutrophils 6.5 thou/uL (1.40-6.50); %Basophils 0.1 % (0.0-1.0); %Eosinophils 6.3 % (0.0-10.0); %Lymphocytes 21.1 % (21.0-51.0); %Monocytes 10.6 % (0.0-10.0); %Neutrophils 61.9 % (42.0-75.0); Hemoglobin 7.7 g/dL (14.0-18.0); Mean Corpuscular HGB CONC 33.4 g/dL (32.0-36.0); Mean Corpuscular Hemoglobin 28.8 pg (27.0-31.0); Mean Corpuscular Volume 86.3 fL (78.0-98.0); Mean Platelet Volume 6.7 fL (7.4-10.4); Platelet Count 402 thou/uL (130-400); RBC Distribution Width 12.7 % (11.5-14.5); Red Blood Cell (RBC) Count 2.66 mill/uL (4.70-6.10); White Blood Cell (WBC) Count 10.5 thou/uL (4.8-10.8)
[2020-11-25] MEDS: Nicotine 21 MG PATCH TOP SCH (07:56)
[2020-11-25] MEDS: Pregabalin 50 MG CAP PO SCH ×3 (07:57→20:29)
[2020-11-25] MEDS: Aripiprazole 10 MG TAB PO SCH (07:57)
[2020-11-25] MEDS: ALPRAZolam 0.5 MG TAB PO SCH ×3 (07:57→20:29)
[2020-11-25] MEDS: Ibuprofen 200 MG TAB PO SCH ×2 (07:58→20:30)
[2020-11-25] MEDS: DULoxetine 60 MG CAP PO SCH ×2 (07:58→20:29)
[2020-11-25] MEDS ORDERED: Iron Sucrose Complex 200 MG in Sodium Chloride 0.9% 100 ML IVPB SCH (13:30)
[2020-11-25] MEDS ORDERED: Iron, Sodium Ferric Gluconate 250 MG in Sodium Chloride 0.9% 100 ML IVPB SCH (14:00)
[2020-11-25 15:53] LABS: Free T4 (Free Thyroxine) 0.82 ng/dL (0.70-1.48)
[2020-11-25] MEDS: Atorvastatin Calcium 20 MG TAB PO SCH (20:29)
[2020-11-26] MEDS: HYDROcodone/Acetaminophen 5/325 mg Tablet PO PRN ×4 (01:43→22:21)
[2020-11-26] MEDS: MEROPENEM 1 GM/50 ML 1 GM in Premix Bag 1 BAG IVPB SCH ×3 (04:49→20:03)
[2020-11-26] MEDS: Vancomycin 1 GM in Premix Bag 1 BAG IVPB SCH ×2 (04:49→17:29)
[2020-11-26] MEDS: Aripiprazole 10 MG TAB PO SCH (08:05)
[2020-11-26] MEDS: Pregabalin 50 MG CAP PO SCH ×3 (08:06→20:04)
[2020-11-26] MEDS: DULoxetine 60 MG CAP PO SCH ×2 (08:06→20:04)
[2020-11-26] MEDS: Ibuprofen 200 MG TAB PO SCH ×2 (08:07→20:05)
[2020-11-26] MEDS: ALPRAZolam 0.5 MG TAB PO SCH ×3 (08:07→20:04)
[2020-11-26] MEDS: Nicotine 21 MG PATCH TOP SCH (08:08)
[2020-11-26] MEDS: Ferrous Sulfate 325 MG TAB PO SCH (08:08)
[2020-11-26 10:35] LABS: #Eosinphils 0.7 thou/uL (0.0-0.7); #Lymphocytes 1.8 thou/uL (1.20-3.40); #Monocytes 0.8 thou/uL (0.11-0.59); #Neutrophils 7.9 thou/uL (1.40-6.50); %Basophils 0.1 % (0.0-1.0); %Eosinophils 6.3 % (0.0-10.0); %Lymphocytes 15.8 % (21.0-51.0); %Monocytes 7.2 % (0.0-10.0); %Neutrophils 70.7 % (42.0-75.0); Hemoglobin 6.9 g/dL (14.0-18.0); Mean Corpuscular HGB CONC 32.2 g/dL (32.0-36.0); Mean Corpuscular Hemoglobin 28.2 pg (27.0-31.0); Mean Corpuscular Volume 87.5 fL (78.0-98.0); Mean Platelet Volume 6.8 fL (7.4-10.4); Platelet Count 442 thou/uL (130-400); RBC Distribution Width 13.4 % (11.5-14.5); Red Blood Cell (RBC) Count 2.43 mill/uL (4.70-6.10); White Blood Cell (WBC) Count 11.1 thou/uL (4.8-10.8)
[2020-11-26] MEDS ORDERED: HYDROcodone/Acetaminophen 5/325 mg Tablet PO PRN (10:39)
[2020-11-26 10:50] LABS: Anion Gap 9 mmol/L (10-20); BUN (Urea Nitrogen) 30 mg/dL (8.4-25.7); Calc. Creatinine Clearance 113 mL/min (70-130); Calcium 8.8 mg/dL (7.8-10.44); Carbon Dioxide 30 mmol/L (23-31); Chloride 104 mmol/L (98-107); Glucose 130 mg/dL (80-115); Potassium 4.4 mmol/L (3.5-5.1); Sodium 139 mmol/L (136-145)
[2020-11-26] MEDS ORDERED: Pantoprazole 40 MG VIAL IVP SCH (11:30)
[2020-11-26 15:10] LABS: Vancomycin, Trough 15.9 ug/mL
[2020-11-26] MEDS: Atorvastatin Calcium 20 MG TAB PO SCH (20:04)
[2020-11-26] MEDS: Pantoprazole 40 MG VIAL IVP SCH (20:05)
[2020-11-27] MEDS: MEROPENEM 1 GM/50 ML 1 GM in Premix Bag 1 BAG IVPB SCH ×3 (03:37→21:07)
[2020-11-27] MEDS: Vancomycin 1 GM in Premix Bag 1 BAG IVPB SCH ×2 (03:37→15:26)
[2020-11-27] MEDS: HYDROcodone/Acetaminophen 5/325 mg Tablet PO PRN ×4 (04:26→22:45)
[2020-11-27] MEDS: Ferrous Sulfate 325 MG TAB PO SCH (07:50)
[2020-11-27] MEDS: Pregabalin 50 MG CAP PO SCH ×3 (07:50→21:09)
[2020-11-27] MEDS: ALPRAZolam 0.5 MG TAB PO SCH ×3 (07:51→21:09)
[2020-11-27] MEDS: Aripiprazole 10 MG TAB PO SCH (07:51)
[2020-11-27] MEDS: Pantoprazole 40 MG VIAL IVP SCH ×2 (07:51→21:10)
[2020-11-27] MEDS: DULoxetine 60 MG CAP PO SCH ×2 (07:51→21:09)
[2020-11-27] MEDS ORDERED: Lidocaine 1% PF 5 ML VIAL ONE (11:09)
[2020-11-27] MEDS ORDERED: PROPOFOL 200 MG/20 ML VIAL ONE (11:09)
[2020-11-27] MEDS ORDERED: Meperidine HCl/PF 25 MG/ML VIAL SLOW IVP PRN (11:33)
[2020-11-27] MEDS ORDERED: HYDROmorphone 2 MG/ML VIAL SLOW IVP PRN (11:33)
[2020-11-27] MEDS ORDERED: Promethazine HCl 25 MG/ML VIAL IVPB PRN (11:33)
[2020-11-27] MEDS ORDERED: Ondansetron HCl/PF 4 MG/2 ML Vial IVP PRN (11:33)
[2020-11-27] MEDS ORDERED: Promethazine HCl 25 MG/ML VIAL IM PRN (11:33)
[2020-11-27] MEDS: Nicotine 21 MG PATCH TOP SCH (12:06)
[2020-11-27] MEDS: Atorvastatin Calcium 20 MG TAB PO SCH (21:09)
[2020-11-28] MEDS: Vancomycin 1 GM in Premix Bag 1 BAG IVPB SCH ×2 (03:38→15:45)
[2020-11-28] MEDS: HYDROcodone/Acetaminophen 5/325 mg Tablet PO PRN ×3 (04:13→16:40)
[2020-11-28] MEDS: MEROPENEM 1 GM/50 ML 1 GM in Premix Bag 1 BAG IVPB SCH ×3 (04:58→19:40)
[2020-11-28 06:26] LABS: #Eosinphils 0.6 thou/uL (0.0-0.7); #Monocytes 0.8 thou/uL (0.11-0.59); #Neutrophils 10.4 thou/uL (1.40-6.50); %Eosinophils 4.4 % (0.0-10.0); %Lymphocytes 14.4 % (21.0-51.0); %Monocytes 5.8 % (0.0-10.0); %Neutrophils 75.3 % (42.0-75.0); Hemoglobin 8.3 g/dL (14.0-18.0); Mean Corpuscular HGB CONC 32.9 g/dL (32.0-36.0); Mean Corpuscular Hemoglobin 29.4 pg (27.0-31.0); Mean Corpuscular Volume 89.5 fL (78.0-98.0); Mean Platelet Volume 7.1 fL (7.4-10.4); Platelet Count 386 thou/uL (130-400); RBC Distribution Width 14.5 % (11.5-14.5); Red Blood Cell (RBC) Count 2.81 mill/uL (4.70-6.10); White Blood Cell (WBC) Count 13.9 thou/uL (4.8-10.8)
[2020-11-28 06:48] LABS: Anion Gap 11 mmol/L (10-20); BUN (Urea Nitrogen) 22 mg/dL (8.4-25.7); Calc. Creatinine Clearance 111 mL/min (70-130); Calcium 8.4 mg/dL (7.8-10.44); Carbon Dioxide 26 mmol/L (23-31); Chloride 102 mmol/L (98-107); Glucose 98 mg/dL (80-115); Potassium 4.3 mmol/L (3.5-5.1); Sodium 135 mmol/L (136-145)
[2020-11-28] MEDS: Aripiprazole 10 MG TAB PO SCH (09:08)
[2020-11-28] MEDS: ALPRAZolam 0.5 MG TAB PO SCH ×2 (09:08→14:13)
[2020-11-28] MEDS: Pantoprazole 40 MG VIAL IVP SCH (09:08)
[2020-11-28] MEDS: DULoxetine 60 MG CAP PO SCH (09:08)
[2020-11-28] MEDS: Nicotine 21 MG PATCH TOP SCH (09:08)
[2020-11-28] MEDS: Ferrous Sulfate 325 MG TAB PO SCH (09:10)
[2020-11-28] MEDS: Pregabalin 50 MG CAP PO SCH ×2 (09:11→14:13)
[2020-11-28] MEDS ORDERED: Acetaminophen 500 MG TAB PO PRN (09:31)
[2020-11-28 15:06] LABS: Vancomycin, Trough 15.2 ug/mL
[2020-11-28 17:03] VITALS: BP 109/70; TEMP 97.8
[2020-11-28] MEDS ORDERED: HYDROcodone/Acetaminophen 10/325 mg Tablet PO SCH (19:44)
[2020-11-28] MEDS ORDERED: Morphine 4 MG/ML VIAL SLOW IVP SCH (20:15)
== END 2020-11-28 20:20 | DRG 854 ==
LOC: SDC 11:54 → SURG A 19:36
PROVIDERS: ADMIT Plastic Surgery; ATTEND Plastic Surgery
PROC: 30233N1 Transfusion of Nonautologous Red Blood Cells into Peripheral Vein, Percutaneous Approach (ICD-10-PCS; 2020-11-16)
PROC: 0KBT0ZZ Excision of Left Lower Leg Muscle, Open Approach (ICD-10-PCS; principal; 2020-11-19)
PROC: 0KBT0ZZ Excision of Left Lower Leg Muscle, Open Approach (ICD-10-PCS; 2020-11-25)
PROC: 02HV33Z Insertion of Infusion Device into Superior Vena Cava, Percutaneous Approach (ICD-10-PCS; 2020-11-25)
PROC: B548ZZA Ultrasonography of Superior Vena Cava, Guidance (ICD-10-PCS; 2020-11-25)
PROC: 0DJ08ZZ Inspection of Upper Intestinal Tract, Via Natural or Artificial Opening Endoscopic (ICD-10-PCS; 2020-11-27)
DX: A48.0 Gas gangrene (principal); L97.823 Non-pressure chronic ulcer of other part of left lower leg with necrosis of muscle; I70.262 Atherosclerosis of native arteries of extremities with gangrene, left leg; M62.82 Rhabdomyolysis; D62 Acute posthemorrhagic anemia; E87.1 Hypo-osmolality and hyponatremia; F41.9 Anxiety disorder, unspecified; F17.210 Nicotine dependence, cigarettes, uncomplicated; F14.10 Cocaine abuse, uncomplicated; D72.829 Elevated white blood cell count, unspecified; M54.32 Sciatica, left side; B18.2 Chronic viral hepatitis C; F31.70 Bipolar disorder, currently in remission, most recent episode unspecified; T79.A22D Traumatic compartment syndrome of left lower extremity, subsequent encounter; K29.80 Duodenitis without bleeding; Z88.8 Allergy status to other drugs, medicaments and biological substances; Z79.899 Other long term (current) drug therapy; D50.9 Iron deficiency anemia, unspecified
CPT/HCPCS: 36415; 36430; 36569; 80048; 80053; 80202; 82274; 82607; 82728; 82746; 83540; 83550; 83615; 84439; 84443; 84481; 85014; 85018; 85025; 85046; 86850; 86870; 86900; 86901; 86922; 87070; 87077; 87186; 87205; C1751; C9113; J0171; J0690; J1100; J1170; J1200; J1644; J1650; J2185; J2250; J2270; J2370; J2405; J2543; J2704; J2916; J3010; J3370; J3490; P9016; P9045; P9047; S0020; U0002; U0003; U0005

== ENCOUNTER 2020-12-11 20:08 | Emergency (ER) | payer OTHER | END 2020-12-11 22:28 | disposition home or self-care (01) | LOC: ERS 20:08 | DX: Z48.817 Encounter for surgical aftercare following surgery on the skin and subcutaneous tissue (principal); F17.210 Nicotine dependence, cigarettes, uncomplicated; Z79.899 Other long term (current) drug therapy | CPT/HCPCS: 99284 ==

== ENCOUNTER 2021-03-06 15:55 | Emergency (ER) | payer OTHER ==
[2021-03-06 17:46] LABS: #Eosinphils 0.2 thou/uL (0.0-0.7); #Monocytes 1.4 thou/uL (0.11-0.59); #Neutrophils 9.2 thou/uL (1.40-6.50); %Basophils 0.2 % (0.0-1.0); %Eosinophils 1.6 % (0.0-10.0); %Lymphocytes 21.4 % (21.0-51.0); %Monocytes 9.8 % (0.0-10.0); Hemoglobin 11.8 g/dL (14.0-18.0); Mean Corpuscular HGB CONC 31.8 g/dL (32.0-36.0); Mean Corpuscular Hemoglobin 25.9 pg (27.0-31.0); Mean Corpuscular Volume 81.3 fL (78.0-98.0); Mean Platelet Volume 6.4 fL (7.4-10.4); Platelet Count 370 thou/uL (130-400); RBC Distribution Width 13.5 % (11.5-14.5); Red Blood Cell (RBC) Count 4.57 mill/uL (4.70-6.10); White Blood Cell (WBC) Count 13.8 thou/uL (4.8-10.8)
[2021-03-06 18:19] LABS: ALT (SGPT) 19 U/L (8-55); AST (SGOT) 26 U/L (5-34); Alkaline Phosphatase 115 U/L (40-110); Anion Gap 17 mmol/L (10-20); BUN (Urea Nitrogen) 19 mg/dL (8.4-25.7); Bilirubin, Total 0.3 mg/dL (0.2-1.2); Calc. Creatinine Clearance 0 mL/min (70-130); Calcium 10.1 mg/dL (7.8-10.44); Carbon Dioxide 23 mmol/L (23-31); Chloride 100 mmol/L (98-107); Globulin 5.5 g/dL (2.4-3.5); Glucose 100 mg/dL (80-115); Potassium 4.2 mmol/L (3.5-5.1); Protein, Total 9.5 g/dL (5.8-8.1); Sodium 136 mmol/L (136-145)
[2021-03-06] MEDS ORDERED: Sulfameth/Trimethoprim DS 800-160mg TAB ONE (19:10)
[2021-03-06] MEDS ORDERED: HYDROcodone/Acetaminophen 5/325 mg Tablet ONE (19:14)
[2021-03-06] MEDS ORDERED: Cephalexin 250 MG CAP ONE (19:14)
== END 2021-03-06 20:16 | disposition home or self-care (01) ==
LOC: ERS 15:55
DX: L03.116 Cellulitis of left lower limb (principal); F17.210 Nicotine dependence, cigarettes, uncomplicated
CPT/HCPCS: 36415; 80053; 83605; 85025; 99283

== ENCOUNTER 2021-03-09 16:10 | Inpatient (IN) | payer OTHER ==
[2021-03-09 16:51] LABS: #Eosinphils 0.3 thou/uL (0.0-0.7); #Lymphocytes 2.7 thou/uL (1.20-3.40); #Monocytes 1.4 thou/uL (0.11-0.59); #Neutrophils 8.9 thou/uL (1.40-6.50); %Eosinophils 1.9 % (0.0-10.0); %Lymphocytes 20.1 % (21.0-51.0); %Monocytes 10.2 % (0.0-10.0); %Neutrophils 67.7 % (42.0-75.0); Hemoglobin 10.1 g/dL (14.0-18.0); Mean Corpuscular HGB CONC 31.3 g/dL (32.0-36.0); Mean Corpuscular Hemoglobin 25.7 pg (27.0-31.0); Mean Platelet Volume 6.3 fL (7.4-10.4); Platelet Count 408 thou/uL (130-400); RBC Distribution Width 13.2 % (11.5-14.5); Red Blood Cell (RBC) Count 3.94 mill/uL (4.70-6.10); White Blood Cell (WBC) Count 13.2 thou/uL (4.8-10.8)
[2021-03-09 17:08] LABS: ALT (SGPT) 16 U/L (8-55); AST (SGOT) 21 U/L (5-34); Albumin 3.5 g/dL (3.4-4.8); Alkaline Phosphatase 99 U/L (40-110); Anion Gap 15 mmol/L (10-20); BUN (Urea Nitrogen) 21 mg/dL (8.4-25.7); Bilirubin, Total 0.2 mg/dL (0.2-1.2); Calc. Creatinine Clearance 0 mL/min (70-130); Calcium 9.5 mg/dL (7.8-10.44); Carbon Dioxide 24 mmol/L (23-31); Chloride 100 mmol/L (98-107); Globulin 4.9 g/dL (2.4-3.5); Glucose 98 mg/dL (80-115); Potassium 4.2 mmol/L (3.5-5.1); Protein, Total 8.4 g/dL (5.8-8.1); Sodium 135 mmol/L (136-145)
[2021-03-09] MEDS ORDERED: Ondansetron PF 4 MG/2 ML Vial ONE (17:25)
[2021-03-09] MEDS ORDERED: Morphine 4 MG/ML VIAL ONE (17:25)
[2021-03-09] MEDS ORDERED: Clindamycin/D5W 900 mg/50 ml Premix Bag ONE (17:25)
[2021-03-09] MEDS ORDERED: Cefepime 2 GM VIAL ONE ×2 (17:25→18:28)
[2021-03-09] MEDS ORDERED: VANCOMYCIN 2 GRAM/400 ML BAG 2 GM in Premix Bag 1 BAG IVPB SCH (18:15)
[2021-03-09] MEDS ORDERED: Xylocaine 1% w/ Epi 1:100K 10 ML VIAL ONE (18:24)
[2021-03-09 22:45] LABS: SARS-CoV-2 NAA Rapid Test Not Detected (NotDetected)
[2021-03-09 22:51] VITALS: BMI 23.8
[2021-03-09] MEDS ORDERED: traMADol HCl 50 MG TAB PO SCH (23:30)
[2021-03-10] MEDS ORDERED: Ondansetron PF 4 MG/2 ML Vial IVP PRN (00:11)
[2021-03-10] MEDS ORDERED: Acetaminophen 325 MG TAB PO PRN (00:11)
[2021-03-10] MEDS ORDERED: Ondansetron ODT 4 MG TAB PO PRN (00:11)
[2021-03-10] MEDS ORDERED: Acetaminophen 650 MG Suppository PR PRN (00:11)
[2021-03-10] MEDS ORDERED: HYDROcodone/Acetaminophen 5/325 mg Tablet PO SCH (00:15)
[2021-03-10] MEDS: Morphine 4 MG/ML VIAL SLOW IVP PRN ×4 (00:43→23:24)
[2021-03-10] MEDS: Cefepime 2 GM in Sodium Chloride 0.9% 100 ML IVPB SCH ×2 (05:06→19:52)
[2021-03-10 08:30] LABS: Anion Gap 16 mmol/L (10-20); BUN (Urea Nitrogen) 16 mg/dL (8.4-25.7); Calc. Creatinine Clearance 100 mL/min (70-130); Calcium 9.8 mg/dL (7.8-10.44); Carbon Dioxide 23 mmol/L (23-31); Chloride 100 mmol/L (98-107); Glucose 84 mg/dL (80-115); Potassium 4.1 mmol/L (3.5-5.1); Sodium 135 mmol/L (136-145)
[2021-03-10] MEDS: Enoxaparin Sodium 40 MG/0.4 ML SYRINGE SC SCH (08:33)
[2021-03-10] MEDS: Pregabalin 50 MG CAP PO SCH ×3 (08:33→19:50)
[2021-03-10] MEDS: DULoxetine 60 MG CAP PO SCH ×2 (08:33→19:50)
[2021-03-10 08:35] LABS: #Eosinphils 0.4 thou/uL (0.0-0.7); #Lymphocytes 2.4 thou/uL (1.20-3.40); #Monocytes 1.4 thou/uL (0.11-0.59); #Neutrophils 6.9 thou/uL (1.40-6.50); %Basophils 0.1 % (0.0-1.0); %Eosinophils 3.2 % (0.0-10.0); %Lymphocytes 21.6 % (21.0-51.0); %Monocytes 12.8 % (0.0-10.0); %Neutrophils 62.3 % (42.0-75.0); Hemoglobin 9.9 g/dL (14.0-18.0); Mean Corpuscular HGB CONC 30.5 g/dL (32.0-36.0); Mean Corpuscular Volume 81.9 fL (78.0-98.0); Mean Platelet Volume 6.4 fL (7.4-10.4); Platelet Count 409 thou/uL (130-400); RBC Distribution Width 13.2 % (11.5-14.5); Red Blood Cell (RBC) Count 3.94 mill/uL (4.70-6.10); White Blood Cell (WBC) Count 11.1 thou/uL (4.8-10.8)
[2021-03-10] MEDS ORDERED: Senokot S 8.6-50 MG TAB PO PRN (13:36)
[2021-03-10] MEDS: VANCOMYCIN 1.25 GM/250 ML BAG 1.25 GM in Premix Bag 1 BAG IVPB SCH (18:30)
[2021-03-10] MEDS: Ketorolac Tromethamine 30 MG/ML VIAL IVP SCH ×2 (18:36→23:22)
[2021-03-10] MEDS: Atorvastatin Calcium 20 MG TAB PO SCH (19:50)
[2021-03-10] MEDS: oxyCODONE/Acetaminophen 5 mg/325 mg Tablet PO PRN (19:50)
[2021-03-10] MEDS ORDERED: Ketorolac Tromethamine 30 MG/ML VIAL IVP SCH (23:59)
[2021-03-11] MEDS: VANCOMYCIN 1.25 GM/250 ML BAG 1.25 GM in Premix Bag 1 BAG IVPB SCH ×2 (03:27→15:06)
[2021-03-11] MEDS: oxyCODONE/Acetaminophen 5 mg/325 mg Tablet PO PRN ×4 (03:27→21:25)
[2021-03-11] MEDS: Cefepime 2 GM in Sodium Chloride 0.9% 100 ML IVPB SCH ×2 (06:00→16:59)
[2021-03-11] MEDS: Morphine 4 MG/ML VIAL SLOW IVP PRN ×4 (06:00→23:41)
[2021-03-11 07:39] LABS: ALT (SGPT) 18 U/L (8-55); AST (SGOT) 29 U/L (5-34); Albumin 3.5 g/dL (3.4-4.8); Alkaline Phosphatase 94 U/L (40-110); Anion Gap 13 mmol/L (10-20); BUN (Urea Nitrogen) 17 mg/dL (8.4-25.7); Bilirubin, Total 0.3 mg/dL (0.2-1.2); Calc. Creatinine Clearance 108 mL/min (70-130); Calcium 9.4 mg/dL (7.8-10.44); Carbon Dioxide 24 mmol/L (23-31); Chloride 100 mmol/L (98-107); Globulin 4.7 g/dL (2.4-3.5); Glucose 99 mg/dL (80-115); Potassium 4.2 mmol/L (3.5-5.1); Protein, Total 8.2 g/dL (5.8-8.1); Sodium 133 mmol/L (136-145)
[2021-03-11 07:42] LABS: #Eosinphils 0.5 thou/uL (0.0-0.7); #Lymphocytes 2.2 thou/uL (1.20-3.40); %Basophils 0.5 % (0.0-1.0); %Eosinophils 5.4 % (0.0-10.0); %Lymphocytes 25.5 % (21.0-51.0); %Monocytes 11.4 % (0.0-10.0); %Neutrophils 57.2 % (42.0-75.0); Hemoglobin 10.1 g/dL (14.0-18.0); Mean Corpuscular HGB CONC 30.1 g/dL (32.0-36.0); Mean Corpuscular Hemoglobin 24.9 pg (27.0-31.0); Mean Corpuscular Volume 82.5 fL (78.0-98.0); Mean Platelet Volume 6.6 fL (7.4-10.4); Platelet Count 441 thou/uL (130-400); Red Blood Cell (RBC) Count 4.04 mill/uL (4.70-6.10); White Blood Cell (WBC) Count 8.7 thou/uL (4.8-10.8)
[2021-03-11] MEDS: Aripiprazole 10 MG TAB PO SCH (08:21)
[2021-03-11] MEDS: Enoxaparin Sodium 40 MG/0.4 ML SYRINGE SC SCH (08:21)
[2021-03-11] MEDS: Nicotine 21 MG PATCH TOP SCH (08:21)
[2021-03-11] MEDS: DULoxetine 60 MG CAP PO SCH ×2 (08:22→19:19)
[2021-03-11] MEDS: Ferrous Sulfate 325 MG TAB PO SCH (08:22)
[2021-03-11] MEDS: Pregabalin 50 MG CAP PO SCH ×3 (08:22→19:19)
[2021-03-11] MEDS ORDERED: Nicotine 21 MG PATCH TOP SCH (09:00)
[2021-03-11] MEDS ORDERED: Non-Formulary Item 1 EACH (Aripiprazole [Aripiprazole] 5 MG Tablet) PO SCH (09:00)
[2021-03-11] MEDS: Atorvastatin Calcium 20 MG TAB PO SCH (19:20)
[2021-03-12] MEDS: oxyCODONE/Acetaminophen 5 mg/325 mg Tablet PO PRN ×3 (03:33→22:52)
[2021-03-12 04:15] LABS: Vancomycin, Trough 14.6 ug/mL
[2021-03-12] MEDS: Morphine 4 MG/ML VIAL SLOW IVP PRN ×4 (05:06→19:29)
[2021-03-12] MEDS: Cefepime 2 GM in Sodium Chloride 0.9% 100 ML IVPB SCH ×2 (05:07→18:04)
[2021-03-12] MEDS: VANCOMYCIN 1.25 GM/250 ML BAG 1.25 GM in Premix Bag 1 BAG IVPB SCH ×2 (05:12→15:23)
[2021-03-12 06:33] LABS: #Eosinphils 0.5 thou/uL (0.0-0.7); #Lymphocytes 2.1 thou/uL (1.20-3.40); #Neutrophils 4.8 thou/uL (1.40-6.50); %Basophils 0.4 % (0.0-1.0); %Eosinophils 5.5 % (0.0-10.0); %Lymphocytes 25.4 % (21.0-51.0); %Monocytes 11.6 % (0.0-10.0); %Neutrophils 57.1 % (42.0-75.0); Hemoglobin 10.1 g/dL (14.0-18.0); Mean Corpuscular HGB CONC 31.4 g/dL (32.0-36.0); Mean Corpuscular Hemoglobin 25.4 pg (27.0-31.0); Mean Corpuscular Volume 81.1 fL (78.0-98.0); Mean Platelet Volume 6.2 fL (7.4-10.4); Platelet Count 435 thou/uL (130-400); RBC Distribution Width 12.9 % (11.5-14.5); Red Blood Cell (RBC) Count 3.96 mill/uL (4.70-6.10); White Blood Cell (WBC) Count 8.3 thou/uL (4.8-10.8)
[2021-03-12 06:55] LABS: ALT (SGPT) 22 U/L (8-55); AST (SGOT) 30 U/L (5-34); Albumin 3.4 g/dL (3.4-4.8); Alkaline Phosphatase 92 U/L (40-110); Anion Gap 12 mmol/L (10-20); BUN (Urea Nitrogen) 17 mg/dL (8.4-25.7); Bilirubin, Total 0.2 mg/dL (0.2-1.2); Calc. Creatinine Clearance 111 mL/min (70-130); Calcium 9.7 mg/dL (7.8-10.44); Carbon Dioxide 27 mmol/L (23-31); Chloride 101 mmol/L (98-107); Globulin 4.9 g/dL (2.4-3.5); Glucose 102 mg/dL (80-115); Potassium 3.9 mmol/L (3.5-5.1); Protein, Total 8.3 g/dL (5.8-8.1); Sodium 136 mmol/L (136-145)
[2021-03-12] MEDS: Enoxaparin Sodium 40 MG/0.4 ML SYRINGE SC SCH (08:09)
[2021-03-12] MEDS: DULoxetine 60 MG CAP PO SCH ×2 (08:10→19:33)
[2021-03-12] MEDS: Pregabalin 50 MG CAP PO SCH ×3 (08:10→19:33)
[2021-03-12] MEDS: Nicotine 21 MG PATCH TOP SCH (08:10)
[2021-03-12] MEDS: Ferrous Sulfate 325 MG TAB PO SCH (08:12)
[2021-03-12] MEDS: Aripiprazole 10 MG TAB PO SCH (08:12)
[2021-03-12] MEDS: Atorvastatin Calcium 20 MG TAB PO SCH (19:33)
[2021-03-13] MEDS: Morphine 4 MG/ML VIAL SLOW IVP PRN ×5 (00:52→21:23)
[2021-03-13] MEDS: VANCOMYCIN 1.25 GM/250 ML BAG 1.25 GM in Premix Bag 1 BAG IVPB SCH ×2 (03:22→14:33)
[2021-03-13] MEDS: oxyCODONE/Acetaminophen 5 mg/325 mg Tablet PO PRN ×4 (03:23→20:05)
[2021-03-13] MEDS: Cefepime 2 GM in Sodium Chloride 0.9% 100 ML IVPB SCH (05:08)
[2021-03-13 05:56] LABS: #Eosinphils 0.3 thou/uL (0.0-0.7); #Lymphocytes 1.9 thou/uL (1.20-3.40); #Monocytes 0.7 thou/uL (0.11-0.59); #Neutrophils 3.3 thou/uL (1.40-6.50); %Basophils 0.7 % (0.0-1.0); %Eosinophils 5.3 % (0.0-10.0); %Lymphocytes 30.3 % (21.0-51.0); %Monocytes 11.6 % (0.0-10.0); %Neutrophils 52.1 % (42.0-75.0); Hemoglobin 10.2 g/dL (14.0-18.0); Mean Corpuscular HGB CONC 31.4 g/dL (32.0-36.0); Mean Corpuscular Hemoglobin 25.3 pg (27.0-31.0); Mean Corpuscular Volume 80.5 fL (78.0-98.0); Mean Platelet Volume 6.2 fL (7.4-10.4); Platelet Count 423 thou/uL (130-400); Red Blood Cell (RBC) Count 4.02 mill/uL (4.70-6.10); White Blood Cell (WBC) Count 6.4 thou/uL (4.8-10.8)
[2021-03-13 06:11] LABS: ALT (SGPT) 22 U/L (8-55); AST (SGOT) 30 U/L (5-34); Albumin 3.5 g/dL (3.4-4.8); Alkaline Phosphatase 97 U/L (40-110); Anion Gap 12 mmol/L (10-20); BUN (Urea Nitrogen) 17 mg/dL (8.4-25.7); Bilirubin, Total 0.2 mg/dL (0.2-1.2); Calc. Creatinine Clearance 114 mL/min (70-130); Calcium 9.5 mg/dL (7.8-10.44); Carbon Dioxide 29 mmol/L (23-31); Chloride 103 mmol/L (98-107); Globulin 4.8 g/dL (2.4-3.5); Glucose 71 mg/dL (80-115); Potassium 4.1 mmol/L (3.5-5.1); Protein, Total 8.3 g/dL (5.8-8.1); Sodium 140 mmol/L (136-145)
[2021-03-13] MEDS: Pregabalin 50 MG CAP PO SCH ×3 (08:25→20:06)
[2021-03-13] MEDS: Enoxaparin Sodium 40 MG/0.4 ML SYRINGE SC SCH (08:25)
[2021-03-13] MEDS: Ferrous Sulfate 325 MG TAB PO SCH (08:25)
[2021-03-13] MEDS: Aripiprazole 10 MG TAB PO SCH (08:26)
[2021-03-13] MEDS: DULoxetine 60 MG CAP PO SCH ×2 (08:26→20:06)
[2021-03-13] MEDS: Nicotine 21 MG PATCH TOP SCH (08:26)
[2021-03-13 14:28] LABS: Vancomycin, Trough 17.6 ug/mL
[2021-03-13] MEDS: Doxycycline 100 MG CAP PO SCH (20:06)
[2021-03-13] MEDS: Atorvastatin Calcium 20 MG TAB PO SCH (20:07)
[2021-03-13] MEDS: Sulfameth/Trimethoprim DS 800-160mg TAB PO SCH (20:07)
[2021-03-14] MEDS: oxyCODONE/Acetaminophen 5 mg/325 mg Tablet PO PRN ×5 (01:09→22:57)
[2021-03-14] MEDS: Morphine 4 MG/ML VIAL SLOW IVP PRN ×4 (02:10→19:11)
[2021-03-14] MEDS: Aripiprazole 10 MG TAB PO SCH (08:56)
[2021-03-14] MEDS: Enoxaparin Sodium 40 MG/0.4 ML SYRINGE SC SCH (08:56)
[2021-03-14] MEDS: Ferrous Sulfate 325 MG TAB PO SCH (08:56)
[2021-03-14] MEDS: Pregabalin 50 MG CAP PO SCH ×3 (08:57→20:48)
[2021-03-14] MEDS: DULoxetine 60 MG CAP PO SCH ×2 (08:57→20:49)
[2021-03-14] MEDS: Nicotine 21 MG PATCH TOP SCH (08:57)
[2021-03-14] MEDS: Sulfameth/Trimethoprim DS 800-160mg TAB PO SCH ×2 (08:57→20:48)
[2021-03-14] MEDS: Doxycycline 100 MG CAP PO SCH ×2 (09:01→20:48)
[2021-03-14] MEDS: Atorvastatin Calcium 20 MG TAB PO SCH (20:49)
[2021-03-15] MEDS: Morphine 4 MG/ML VIAL SLOW IVP PRN ×5 (01:10→21:01)
[2021-03-15] MEDS: oxyCODONE/Acetaminophen 5 mg/325 mg Tablet PO PRN ×4 (05:38→23:53)
[2021-03-15] MEDS: DULoxetine 60 MG CAP PO SCH ×2 (08:29→19:47)
[2021-03-15] MEDS: Pregabalin 50 MG CAP PO SCH ×3 (08:29→19:47)
[2021-03-15] MEDS: Doxycycline 100 MG CAP PO SCH ×2 (08:29→19:46)
[2021-03-15] MEDS: Sulfameth/Trimethoprim DS 800-160mg TAB PO SCH ×2 (08:30→19:46)
[2021-03-15] MEDS: Nicotine 21 MG PATCH TOP SCH (08:31)
[2021-03-15] MEDS: Ferrous Sulfate 325 MG TAB PO SCH (08:31)
[2021-03-15] MEDS: Enoxaparin Sodium 40 MG/0.4 ML SYRINGE SC SCH (08:32)
[2021-03-15] MEDS: Aripiprazole 10 MG TAB PO SCH (08:49)
[2021-03-15] MEDS: Atorvastatin Calcium 20 MG TAB PO SCH (19:46)
[2021-03-16] MEDS: Morphine 4 MG/ML VIAL SLOW IVP PRN ×4 (01:00→13:32)
[2021-03-16] MEDS: oxyCODONE/Acetaminophen 5 mg/325 mg Tablet PO PRN ×3 (03:45→13:00)
[2021-03-16] MEDS: Doxycycline 100 MG CAP PO SCH (08:32)
[2021-03-16] MEDS: Aripiprazole 10 MG TAB PO SCH (08:32)
[2021-03-16] MEDS: Nicotine 21 MG PATCH TOP SCH (08:32)
[2021-03-16] MEDS: Enoxaparin Sodium 40 MG/0.4 ML SYRINGE SC SCH (08:32)
[2021-03-16] MEDS: Pregabalin 50 MG CAP PO SCH (08:33)
[2021-03-16] MEDS: DULoxetine 60 MG CAP PO SCH (08:33)
[2021-03-16] MEDS: Ferrous Sulfate 325 MG TAB PO SCH (08:33)
[2021-03-16] MEDS: Sulfameth/Trimethoprim DS 800-160mg TAB PO SCH (08:34)
[2021-03-16 09:20] VITALS: BP 109/74; TEMP 97.7
[2021-03-16 16:31] LABS: SARS-CoV-2 PCR by NAA Not Detected (NotDetected)
== END 2021-03-16 13:39 | DRG 603 ==
LOC: ERS 16:10 → T4-A 18:25
PROVIDERS: ADMIT Internal Medicine; ATTEND Internal Medicine
PROC: 0J9R3ZZ Drainage of Left Foot Subcutaneous Tissue and Fascia, Percutaneous Approach (ICD-10-PCS; principal; 2021-03-09)
DX: L03.116 Cellulitis of left lower limb (principal); E87.1 Hypo-osmolality and hyponatremia; L97.829 Non-pressure chronic ulcer of other part of left lower leg with unspecified severity; I70.262 Atherosclerosis of native arteries of extremities with gangrene, left leg; Z20.822 Contact with and (suspected) exposure to COVID-19; D64.9 Anemia, unspecified; B19.20 Unspecified viral hepatitis C without hepatic coma; G89.29 Other chronic pain; M54.9 Dorsalgia, unspecified; L02.416 Cutaneous abscess of left lower limb; F41.9 Anxiety disorder, unspecified; F14.10 Cocaine abuse, uncomplicated; F31.70 Bipolar disorder, currently in remission, most recent episode unspecified; F17.210 Nicotine dependence, cigarettes, uncomplicated; Z88.8 Allergy status to other drugs, medicaments and biological substances; Z79.899 Other long term (current) drug therapy
CPT/HCPCS: 10061; 36415; 80048; 80053; 80202; 82607; 82746; 83605; 85025; 86140; 87040; 96374; 96375; J0692; J1650; J2270; J2405; J3370; J3490; U0002; U0003; U0005